=== PATIENT | female | born 1950 | race Caucasian/White ===

== ENCOUNTER → 2017-07-23 07:44 | Outpatient (CLI) | payer MEDICARE, SELFPAY ==
--- NOTE | 2017-07-23 07:46 | US_ITS ---
STUDY: ULTRASOUND OF THE FEMALE PELVIS - COMPLETE REASON FOR EXAM: Female, 67 years old. Follow-up of right ovarian cyst. LMP: The patient is postmenopausal. TECHNIQUE: Transvaginal TECHNICAL QUALITY: Adequate. COMPARISON: Comparison is made with prior examination dated June 03, 2017. FINDINGS: The uterus is anteverted and is in a midline position. The uterus measures 6.8 cm x 4.6 cm x 2.8 cm. Normal uterine cervix. The endometrium measures 4 mm in thickness, and is hyperechoic. There is no demonstrated endometrial mass. 2 small uterine fibroids are seen. The larger measures 1.5 cm x 1.2 size by 1.4 cm. I.U.D. - The patient does not have an I.U.D. The right ovary is visualized. The right ovary measures 6.3 cm x 4.1 cm x 5.0 cm. There is a 4.1 cm x 4 cm x 5.2 cm cyst in the right ovary. There is no visualized right adnexal mass or complex lesion. There is normal arterial and normal venous vascularity. The left ovary is visualized. The left ovary measures 2.0 cm x 1.5 cm x 1.0 cm. There is no left ovarian cyst or ovarian mass. There is no visualized left adnexal mass or complex lesion. There is normal arterial and normal venous vascularity. There is no fluid in the cul-de-sac. US/Transvaginal Non- IMPRESSION: Fibroid uterus. 4.1 cm x 4 cm x 5.2 cm cyst in the right ovary. This is essentially unchanged. Electronically Signed: Atul Ram MD at 13:38 EST Tel [phone], Service support ,
== END ==
PROVIDERS: Family Provider Family Medicine; PCP Family Medicine; Visit Provider Nurse Practitioner Women's Health
DX: N83.201 Unspecified ovarian cyst, right side (principal)
CPT/HCPCS: 76830

== ENCOUNTER → 2017-10-13 11:31 | Outpatient (CLI) | payer MEDICARE, SELFPAY ==
[2017-10-13 13:22] LABS: T4 Free Direct 1.19 ng/dL (0.76-1.46); Thyroid Stim Hormone (TSH) 1.17 uIU/mL (0.358-3.74)
== END ==
PROVIDERS: Family Provider Family Medicine; PCP Family Medicine; Visit Provider Nurse Practitioner Family
DX: I25.10 Atherosclerotic heart disease of native coronary artery without angina pectoris (principal); R53.83 Other fatigue; R63.1 Polydipsia; Z79.899 Other long term (current) drug therapy
CPT/HCPCS: 36415; 83036; 84439; 84443

== ENCOUNTER 2017-11-04 05:28 | Day surgery (SDC) | payer MEDICARE, SELFPAY ==
--- NOTE | 2017-10-28 12:51 | EKG12_ITS ---
Test Reason : Blood Pressure : / mmHG Vent. Rate : 068 BPM Atrial Rate : 068 BPM P-R Int : 164 ms QRS Dur : 148 ms QT Int : 470 ms P-R-T Axes : 045 046 061 degrees QTc Int : 499 ms Normal sinus rhythm Left bundle branch block Abnormal ECG Confirmed by AYDEE YA, ANGIE ([id number]), continuity editor DASHA REYES ([id number] on 10/29/2017 11:03:56 AM Referred By: Jaz Jameson Confirmed By:ANGIE BAJWA MD
[2017-10-28 13:22] VITALS: BP 130/67; PULSE 66; RESP 18; TEMP 36.8; O2SAT 94; BMI 41.3
[2017-10-28 14:51] LABS: Absolute Lymphocyte Count 2.12 X10^3/ul (0.83-4.51); Absolute Neutrophil Count 5.1 X10^3/uL (2.0-7.7); Basophil# 0.03 X10^3/uL; Basophil% 0.4 % (0-1); Eosinophils% 2.5 % (0-5); Hematocrit 40.3 % (37-47); Hemoglobin 13.3 g/dl (12.0-15.0); Lymphocyte # 2.12 X10^3/ul (4.0); Lymphocyte % 26.5 % (19-41); Mean Corpuscular Hgb 31.4 pg (27.0-32.0); Mean Corpuscular Volume 95.3 fL (81-99); Mean Platelet Vol. 10.5 fl (6.2-12.0); Monocyte# 0.56 X10^3/uL; Neutrophil # 5.06 X10^3/uL (2.7-7.7); Neutrophil % 63.3 % (47-70); Platelet Count 192 K/mm3 (150-450); RBC Distribution Width CV 12.9 % (11.6-14.6); RBC Distribution Width SD 43.3 fl (35.1-43.9); Red Blood Count 4.23 M/mm3 (4.2-5.4)
[2017-10-28 14:52] LABS: POSITIVE COUNT NO; POSITIVE DIFFERENTIAL NO; POSITIVE MORPHOLOGY NO
[2017-10-28 15:11] LABS: Anion Gap 6 (5-15); BUN 18 mg/dL (7-18); BUN/Creat Ratio 17.3 RATIO (10-20); Calcium,Total 8.6 mg/dL (8.5-10.1); Chloride 105 mmol/L (98-107); Creatinine, Serum 1.04 mg/dL (0.55-1.02); EST Glomerular Filtration Rate 56 mL/min (>60); Est Glom Filt Rate - Afr Amer 68 mL/min (>60); Estimated Creatinine Clearance 47.23 ml/min; Glucose 80 mg/dL (74-106); Sodium Level 142 mmol/L (136-145)
[2017-11-04] VITALS (13 sets, daily range): BP systolic 103–134; BP diastolic 52–78; PULSE 50–62; RESP 16–18; TEMP 36.6–37.4; O2SAT 64–99; BMI 41.3
--- NOTE | 2017-11-04 02:29 | PCM.HPOB.BLA ---
- Problem List (1) Cystocele with incomplete uterovaginal prolapse Status: Acute (2) CAD (coronary artery disease) Status: Acute (3) Right ovarian cyst Status: Acute Comment: nl ca125/cea, plan oophorectomy due to being symptomatic (4) Cardiomyopathy Status: Chronic Qualifiers: (5) Hypertension Status: Chronic Qualifiers: History and Physical Date of Admission: 11/04/17 Intake Vital Signs 08/03/17 Height 5 ft 5 in 08/03/17 Weight: 249 lb 08/03/17 Body Mass Index (BMI) 41.4 08/03/17 Blood Pressure 118/69 08/03/17 Pulse Rate 55 Intake Visit Reasons: ovarian cyst Accompanied by: Self Is patient in pain?: No (Patient states that it feels hot when she urinates. ) Allergies azithromycin [From Zithromax] Allergy (Verified 08/03/17 11:46) Other Medications Aspirin [Aspirin, Baby] 81 mg PO DAILY@0800 08/20/13 [History Confirmed 08/03/17] Carvedilol [Coreg (Beta Jenni)] 12.5 mg PO BID 08/20/13 [History Confirmed 08/03/17] Furosemide [Lasix] 40 mg PO DAILY 08/20/13 [History Confirmed 08/03/17] Lisinopril [Zestril] 20 mg PO BID 08/20/13 [History Confirmed 08/03/17] Potassium Chloride [K-Dur] 20 meq PO DAILY 08/20/13 [History Confirmed 08/03/17] Cholecalciferol (Vitamin D3) [Vitamin D3] 5,000 unit PO QODAY 01/05/17 [History Confirmed 08/03/17] Is last menstrual period known: No Post menopausal: Yes Patient : No : No PFSH Medical History Abnormal Pap smear of cervix (Acute) Surgical History H/O tubal ligation (Resolved) Hx of cholecystectomy (Resolved) cyst on throat (Resolved) Family History Father Diabetes Mother Arthritis Social History Smoking Status: Former smoker alcohol intake: never substance use type: does not use caffeine: Yes frequency: 1-2 times per week seatbelt use: always do you feel safe at home: Yes additional social history: and retired HPI ovarian cyst: Details: GRUPO DARDEN is a 67 year old who presents for follow up of her right ovarian cyst. she has persistent lower pelvic pain and vaginal pressure. she denies any urinary incontinence but feels bladder pressure which radiates into her lower right groin. this has been worsening over time and is signficiant enough she wants to seek therapy. Pregancy History 3 Elective abortions Hx Para 3 Spontaneous abortions Hx # Term Pregnancies Ectopic pregnancies Hx # Pregnancies Multiple births # of living children Past Pregnancies Del. Date Name GA/Weeks Outcome Route Bth Weight Infant Gen Labor Lgth Anesthesia Del Locatn Provider FOB Unknown 1969 Mindy Unknown 1972 Salome Unknown 1973 Shayy URIARTE Const Constitutional: Denies poor appetite, headache(s), fever(s), increased appetite, weight gain, weight loss or fatigue Cardio Card: Denies chest pain Resp Resp: Denies dyspnea or cough GI GI: Reports as per HPI; denies vomiting, nausea or constipation : Reports as per HPI; denies urinary urgency, vaginal discharge, urinary frequency, vaginal itching, vaginal odor, vaginal dryness, urinary incontinence, urinary hesitancy, difficulty urinating, painful urination or nipple discharge Skin Skin/Breast: Denies breast lump, breast pain, breast skin changes, nipple discharge or change in hair Exam Const General: cooperative, healthy appearing, comfortable, no acute distress, well developed Nutritional Appearance: obese Orientation: alert [facility] [place] Head: normal to inspection, normocephalic Neck Neck: normal visual inspection, trachea midline Thyroid: thyroid normal Resp Effort & Inspection: normal respiratory effort GI Inspection: normal to inspection, non-distended Palpation: soft, no hepatosplenomegaly General: bladder normal to palpation External Female Exam: normal external appearance, normal appearance of the urethra Urethra: normal appearance of the urethra, normal palpation, no discharge Speculum Exam - Vagina: normal appearance of the vagina, normal vaginal discharge Speculum Exam - Cervix: normal appearance of the cervix, nontender Bimanual Exam- Vagina & Uterus: bladder normal to palpation, No cervical tenderness, normal bimanual exam, uterine size normal, uterine shape normal, uterine mobility normal, uterine consistency normal, normal cervical palpation, uterus non-tender Bimanual Exam- Adnexa, other: normal adnexae, adnexae mobile, no adnexal masses, cystocele, vaginal apex descent Pelvic Support: cystocele severe, vaginal apex descent mild Skin General: no rashes or lesions noted Assessment & Plan Problems 1. Right ovarian cyst N83.201 nl ca125/cea, plan oophorectomy due to being symptomatic 2. Cystocele with incomplete uterovaginal prolapse N81.2 Plan discussed options including expectant management versus surgical- patient wants to proceed with surgery. recommend LAVH BSO anterior repair nidhi culdoplasty cystoscopy. Discussed with the patient risks of surgery including risks of anesthesia, bleeding, infection, damage to surrounding structures such as bowel, bladder, or vasculature that could lead to additional surgery to repair. I discussed the risk of needing to convert to open abdominal procedure if unable to perform the procedure laparoscopically. medical and cardiac clearance done Coding Level of Care Code Off vis,est,level 5 Diagnoses Right ovarian cyst N83.201 Cystocele with incomplete uterovaginal prolapse N81.2 i have seen the patient and made any clinically relevant updates to the h and p.
[2017-11-04] MEDS: Phenazopyridine 95 MG Tablet PO (06:22)
--- NOTE | 2017-11-04 07:30 | HYST_PTH ---
PATIENT: GRUPO DARDEN LOC: [facility] – [place] U#:[id number] AGE/SX: 67/F ROOM: RE11/04/[address]: Dr. Jaz Jameson MD : 1950 BED: DIS: 11/05/2017 SPEC #: [id number] RECD: 11/04/17 13:43 STATUS: MAYTE LUCIO #: [id number] MARINA: 11/04/17 07:[address]: Jaz Jameson DEPT: SURGICAL PATHOLOGY RECD BY: Parveen Stone ENTERED: 11/04/17 14:12 SP TYPE: HYSTERECT OTHR DR: Dr. Kenneth Hernandez MD Tissues: Uterus, NOS Procedures: PAS with Diastase (control) Special Stain Group II PAS Stain (control) Surgery Specimen Level V HEADER OPERATION: Hysterectomy, lap assisted vaginal, BSO, anterior repair, cysto PRE-OP DIAGNOSIS: Right ovarian cyst, cystocele with incomplete uterovaginal prolapse TISSUE SUBMITTED: Uterus, bilateral tubes and ovaries MICROSCOPIC DIAGNOSIS Uterus, hysterectomy: Cervix ? nabothian cysts, squamous metaplasia and mild chronic inflammation. Endometrial polyp ? benign polyp with cystic change. Endometrium ? weakly proliferative to inactive endometrium with cystic change. Myometrium ? superficial adenomyosis. Right fallopian tube ? tubo-ovarian adhesion. 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 Corpora albicantia. Left fallopian tube ? no pathologic change. Left ovary ? corpora albicantia. AM:kb 11/05/17 COMMENT PAS and PASD stains with matched controls support the above diagnosis. MICROSCOPIC DESCRIPTION Slides are reviewed. GROSS DESCRIPTION Received in fixative is one container labeled with the patient's name and designated uterus, bilateral tubes and ovaries. The specimen consists of a hysterectomy specimen consisting of uterus with cervix, attached left fallopian tube and ovary and detached right fallopian tube and ovary. The uterus with cervix weighs 49 gm and measures 8 x 5 x 3 cm. The serosal surface is byrnes, glistening. The ectocervical mucosa is focally congested. The external os is circular in contour. The endocervical canal measures 2.5 cm in length and the endocervical mucosa is unremarkable. The triangular endometrial cavity measures 3.5 cm in length and 1.5 cm in width. The endometrial cavity shows a byrnes-pink polyp measuring 1.5 x 0.5 x 0.2 cm and the anterior uterine wall close to internal os. The myometrial wall underneath the polyp is not indurated. The rest of the endometrium measures 0.1 cm in thickness. Sections of the uterine wall do not reveal any mass lesion and it measures up to 1.5 cm in thickness. The left fallopian tube measures 5 cm in length and 0.5 cm in diameter. The fimbrial end is identified. No tubo-ovarian adhesions are noted. Sections of fallopian tube reveal unremarkable cut surfaces. The left ovary measures 2 x 1.5 x 1.2 cm. Sections reveal unremarkable cut surfaces. The detached right ovary measures 6 x 5 x 5 cm and weighs 55 gm. The right fallopian tube is present, only a small portion and measures 1 cm in length and 0.5 cm in diameter. The fallopian tube is adherent focally to the cystic ovary. The fimbrial end is identified. The outer surface of the ovary is smooth without any papillation and inked black. The cyst wall is smooth without any papillation. The cystic ovary contains cloudy to slightly mucoidy fluid. The cyst wall measures 0.1 cm in thickness. Front Desk Attendant sections are submitted in ten cassettes as follows: 1 - anterior cervix, 2 - posterior cervix, 3 & 4 - anterior uterine wall (cassette 3 also contains the polyp with underlying uterine wall), 5 & 6 - posterior uterine wall, 7 ? left fallopian tube and ovary, 8 ? right fallopian tube, entirely submitted, 9 & 10 ? right ovary. / AAMIR:kb 11/04/17 TC:1 CPT: 84430, 26580 x2
[2017-11-04] MEDS: Lubricating Jelly 60 GM Tube 30 GM TOPICAL (07:33)
[2017-11-04] MEDS: Bupivacaine 0.25% 30 ML Vial (08:03)
[2017-11-04] MEDS: Vasopressin 20 UNITS/ML Vial (08:40)
[2017-11-04] MEDS: Estrogens,Conj. 1 Tube 1 DOSE (09:05)
--- NOTE | 2017-11-04 10:16 | PCM.OPRPT ---
Problem List (1) Cystocele with incomplete uterovaginal prolapse Status: Acute (2) CAD (coronary artery disease) Status: Acute (3) Right ovarian cyst Status: Acute Comment: nl ca125/cea, plan oophorectomy due to being symptomatic (4) Cardiomyopathy Status: Chronic Qualifiers: (5) Hypertension Status: Chronic Qualifiers: Report of Operation Date of Procedure: 11/04/17 Pre-Operative Diagnosis: Pelvic pain ovarian cyst cystocele with incomplete uterovaginal prolapse Post-Operative Diagnosis: same Surgery/Procedure Performed:: LAVH BSO anterior repair cystoscopy modified Herring's culdoplasty Description of Surgical Findings:: Enlarged right simple ovarian cyst anterior cystocele cigarette catcher: Aleah Borges Type of Anesthesia:: General Special Medications: Osmany Specimen's removed: Uterus tubes ovaries Drains: leavitt Estimated Blood Loss (mL): 150 cc Fluids Replaced: cryStyloid Description of Procedure: Patient received preoperative antibiotics and SCDs were on preoperatively. Patient was taken back to the operating room and placed in the dorsal lithotomy position. General anesthesia was induced and patient was prepped and draped in normal sterile fashion. Uterine manipulator was placed inside the uterus and Leavitt catheter placed in the bladder. The umbilicus was grasped with towel clamps and an intraumbilical incision was made after injecting with quarter percent Marcaine and a Veress needle entered into the abdomen confirmed to be intra-abdominal with a low opening pressure. Abdomen was insufflated with CO2 gas and the Veress needle removed and the 5 mm trocar was placed under direct visualization without complication. Right and left lower quadrants were transilluminated and injected with quarter percent Marcaine and 5 mm ports placed under direct visualization. Pelvis was well visualized see operative findings for additional information. left sigmoid to pelvic side wall adhesions were taken down with the ligasure, and right ovarian adhesions were also taken down. Bilateral fallopian tubes were identified and transected with the LigaSure device across the mesosalpinx to the level of the utero-ovarian ligament which was also transected with the LigaSure device. The broad ligament was opened up by transecting the round ligament bilaterally and skeletonizing the uterine vessels bilaterally and creating a bladder flap using the LigaSure device. The uterine arteries were transected bilaterally with good visualization of the bladder and the ureters were seen to be inferior lateral to the operative area. Attention was then paid to the vaginal portion of the procedure and the cervix was grasped with Manoj clamps and circumferentially injected with dilute vasopressin. A circumferential incision was made and the vaginal mucosa was mobilized off posteriorly and the cul-de-sac entered into sharply and a longneck speculum placed. The anterior cul-de-sac was then identified and entered into sharply. The uterosacral ligaments were clamped cut and suture ligated with 0 Monocryl bilaterally followed by the cardinal ligaments which were clamped cut and suture ligated bilaterally with 0 Monocryl. The uterus serially descended and was removed without difficulty with no morcellation. Pelvic sidewall pedicles were checked and noted to have excellent hemostasis. An internal Herring stitch was placed with 2-0 Prolene and then to 2-0 PDS Herring stitches were placed and then attention was applied to the stitches and cystoscopy was performed. Left ureteral spray was seen but right ureteral spray was compromised and therefore the internal suture was removed of the Prolene. The spray was then seen. Angle sutures to the vaginal cuff were placed with 0 Vicryl and then the Herring's stitches were tied down and repeat cystoscopy was performed confirming strong bilateral ureteral spray. Anterior repair was then started by injecting into the vaginal mucosa dilute vasopressin and then incising the midline and dissecting off the underlying pubocervical fascia off of the vaginal mucosa. Once dissection was complete across the entire anterior defect interrupted sutures of 2-0 PDS were made in 2 layers to correct the defect and provide support. Cystoscopy was then performed and bilateral ureteral strong spray was noted and the bladder was noted to have no abnormality or lesions seen. Leavitt catheter was replaced and The vaginal mucosa was reapproximated incorporating the posterior peritoneum. This was reapproximated using 0 Vicryl [id number] sutures. Excellent hemostasis was noted. then attention paid to the abdominal portion of the procedure again. The pelvis and cul-de-sac was well visualized and no significant active bleeding noted but some raw areas were seen on the peritoneum and therefore Osmany was applied. Pressure was taken down and the areas visualized and noted of excellent hemostasis. All ports were removed under direct visualization without complication and the abdomen was desufflated of air. The instruments removed from the abdomen and the vagina vaginal sweep was negative. Port sites on the abdomen were closed with 4-0 Monocryl interrupted sutures and Steri's and windows were applied. She was awoken and taken recovery in stable condition. Grafts/Implants Used: none - Complications none - Admit VTE Documentation VTE Present on Admission: No VTE Mechan Device Prophylaxis: SCD's
--- NOTE | 2017-11-04 10:23 | OP.PCM_ITS ---
Problem List (1) Cystocele with incomplete uterovaginal prolapse Status: Acute (2) CAD (coronary artery disease) Status: Acute (3) Right ovarian cyst Status: Acute Comment: nl ca125/cea, plan oophorectomy due to being symptomatic (4) Cardiomyopathy Status: Chronic Qualifiers: (5) Hypertension Status: Chronic Qualifiers: Report of Operation Date of Procedure: 11/04/17 Pre-Operative Diagnosis: Pelvic pain ovarian cyst cystocele with incomplete uterovaginal prolapse Post-Operative Diagnosis: same Surgery/Procedure Performed:: LAVH BSO anterior repair cystoscopy modified Herring's culdoplasty Description of Surgical Findings:: Enlarged right simple ovarian cyst anterior cystocele search engineer: Aleah Borges Type of Anesthesia:: General Special Medications: Osmany Specimen's removed: Uterus tubes ovaries Drains: leavitt Estimated Blood Loss (mL): 150 cc Fluids Replaced: cryStyloid Description of Procedure: Patient received preoperative antibiotics and SCDs were on preoperatively. Patient was taken back to the operating room and placed in the dorsal lithotomy position. General anesthesia was induced and patient was prepped and draped in normal sterile fashion. Uterine manipulator was placed inside the uterus and Leavitt catheter placed in the bladder. The umbilicus was grasped with towel clamps and an intraumbilical incision was made after injecting with quarter percent Marcaine and a Veress needle entered into the abdomen confirmed to be intra-abdominal with a low opening pressure. Abdomen was insufflated with CO2 gas and the Veress needle removed and the 5 mm trocar was placed under direct visualization without complication. Right and left lower quadrants were transilluminated and injected with quarter percent Marcaine and 5 mm ports placed under direct visualization. Pelvis was well visualized see operative findings for additional information. left sigmoid to pelvic side wall adhesions were taken down with the ligasure, and right ovarian adhesions were also taken down. Bilateral fallopian tubes were identified and transected with the LigaSure device across the mesosalpinx to the level of the utero-ovarian ligament which was also transected with the LigaSure device. The broad ligament was opened up by transecting the round ligament bilaterally and skeletonizing the uterine vessels bilaterally and creating a bladder flap using the LigaSure device. The uterine arteries were transected bilaterally with good visualization of the bladder and the ureters were seen to be inferior lateral to the operative area. Attention was then paid to the vaginal portion of the procedure and the cervix was grasped with Manoj clamps and circumferentially injected with dilute vasopressin. A circumferential incision was made and the vaginal mucosa was mobilized off posteriorly and the cul-de- sac entered into sharply and a longneck speculum placed. The anterior cul-de- sac was then identified and entered into sharply. The uterosacral ligaments were clamped cut and suture ligated with 0 Monocryl bilaterally followed by the cardinal ligaments which were clamped cut and suture ligated bilaterally with 0 Monocryl. The uterus serially descended and was removed without difficulty with no morcellation. Pelvic sidewall pedicles were checked and noted to have excellent hemostasis. An internal Herring stitch was placed with 2-0 Prolene and then to 2-0 PDS Herring stitches were placed and then attention was applied to the stitches and cystoscopy was performed. Left ureteral spray was seen but right ureteral spray was compromised and therefore the internal suture was removed of the Prolene. The spray was then seen. Angle sutures to the vaginal cuff were placed with 0 Vicryl and then the Herring's stitches were tied down and repeat cystoscopy was performed confirming strong bilateral ureteral spray. Anterior repair was then started by injecting into the vaginal mucosa dilute vasopressin and then incising the midline and dissecting off the underlying pubocervical fascia off of the vaginal mucosa. Once dissection was complete across the entire anterior defect interrupted sutures of 2-0 PDS were made in 2 layers to correct the defect and provide support. Cystoscopy was then performed and bilateral ureteral strong spray was noted and the bladder was noted to have no abnormality or lesions seen. Leavitt catheter was replaced and The vaginal mucosa was reapproximated incorporating the posterior peritoneum. This was reapproximated using 0 Vicryl [id number] sutures. Excellent hemostasis was noted. then attention paid to the abdominal portion of the procedure again. The pelvis and cul-de-sac was well visualized and no significant active bleeding noted but some raw areas were seen on the peritoneum and therefore Osmany was applied. Pressure was taken down and the areas visualized and noted of excellent hemostasis. All ports were removed under direct visualization without complication and the abdomen was desufflated of air. The instruments removed from the abdomen and the vagina vaginal sweep was negative. Port sites on the abdomen were closed with 4-0 Monocryl interrupted sutures and Steri's and windows were applied. She was awoken and taken recovery in stable condition. Grafts/Implants Used: none - Complications none - Admit VTE Documentation VTE Present on Admission: No VTE Mechan Device Prophylaxis: SCD's
[2017-11-04] MEDS: Lactated Ringers 1,000 ML 125 ML IV ×2 (12:00→20:19)
[2017-11-04] MEDS: Acetaminophen 500 MG Tablet 1000 MG PO ×2 (14:07→21:24)
[2017-11-04] MEDS: oxyCODONE 5 MG Tablet PO ×2 (14:08→20:19)
[2017-11-04] MEDS: Furosemide 40 MG Tablet PO (20:25)
[2017-11-04] MEDS: Carvedilol 12.5 MG Tablet PO (21:24)
[2017-11-04] MEDS: Enoxaparin 40 MG/0.4 ML Syringe SC (21:25)
[2017-11-05] VITALS (7 sets, daily range): BP systolic 104–120; BP diastolic 49–60; PULSE 52–64; RESP 18; TEMP 36.7–36.9; O2SAT 96–97
[2017-11-05] MEDS: Acetaminophen 500 MG Tablet 1000 MG PO (05:00)
--- NOTE | 2017-11-05 07:11 | PCM.DC.VHY ---
Discharge Diet: No Restrictions Discharge Activity: Return to Normal Activity, May Not Drive, May Shower May resume sexual activity in: 6-8 weeks Call your doctor if your incision/area has: Continuous Slow Oozing, Sudden Increased Bleeding, Increased Pain/ Swelling, Increased Redness, Foul Smelling Discharge Call your doctor if you observe: Fever of 101 or Higher, Inability to urinate, Inability to have a bowel movement, Using more than one pad per hour Allergies/Adverse Reactions: Allergies azithromycin [From Zithromax] Allergy (Verified 10/28/17 12:57) Other colesevelam [From WelChol] Adverse Reaction (Severe, Verified 10/28/17 12:57) Constipation colestipol [From Colestid] Adverse Reaction (Severe, Verified 10/28/17 12:57) Abdominal bloating,constipation Dlnmwbd-Rcu-Znb Reductase Inhibitor Adverse Reaction (Severe, Verified 10/28/17 12:57) Myalgias telithromycin [From Ketek] Adverse Reaction (Severe, Verified 10/28/17 12:57) Unknown Medications to take at Discharge Aspirin [Aspirin, Baby] 81 mg PO DAILY@0800 08/20/13 Potassium Chloride [K-Dur] 20 meq PO DAILY 08/20/13 Cholecalciferol (Vitamin D3) [Vitamin D3] 5,000 unit PO QODAY 01/05/17 carvedilol 12.5 mg tablet 12.5 mg PO BID #180 tab 08/16/17 furosemide 40 mg tablet 40 mg PO DAILY #90 tab 10/13/17 lisinopril 20 mg tablet 20 mg PO QDAY tab 10/13/17 Naproxen [Naprosyn] 250 - 500 mg PO Q8H PRN PRN #30 tab 11/05/17 Oxycodone HCl/Acetaminophen [Percocet 5-325] 2 tablet PO Q4H PRN PRN 7 Days #28 tablet 11/05/17 The following prescriptions were given: Oxycodone HCl/Acetaminophen [Percocet 5-325] 2 tablet PO Q4H PRN PRN 7 Days #28 tablet PRN Reason: Moderate-Severe pain Naproxen [Naprosyn] 250 - 500 mg PO Q8H PRN PRN #30 tab PRN Reason: MILD PAIN Primary Care Physician: Kenneth Hernandez MD [Primary Care Provider] - Please Follow Up With: Jaz Jameson MD - [phone] When: fu 2 and 6 weeks
[2017-11-05 07:40] LABS: Hematocrit 34.5 % (37-47); Hemoglobin 11.4 g/dl (12.0-15.0); Mean Corpuscular Hgb 31.1 pg (27.0-32.0); Mean Corpuscular Volume 94.3 fL (81-99); Platelet Count 164 K/mm3 (150-450); RBC Distribution Width CV 13.1 % (11.6-14.6); Red Blood Count 3.66 M/mm3 (4.2-5.4); White Blood Count 13.1 K/mm3 (4.4-11.0)
[2017-11-05 07:45] LABS: Scan Indicated on CBC? Y/N NO
[2017-11-05] MEDS: Aspirin 81 MG TAB.CHEW PO (07:46)
[2017-11-05] MEDS: oxyCODONE 5 MG Tablet PO ×2 (07:49→13:56)
== END 2017-11-05 14:19 | disposition home or self-care (01) ==
LOC: SDC 05:28 → AC 05:29 → MS3 08:30
PROVIDERS: Family Provider Family Medicine; PCP Family Medicine; Visit Provider Obstetrics & Gynecology
PROC: 0UT9FZZ Resection of Uterus, Via Natural or Artificial Opening With Percutaneous Endoscopic Assistance (ICD-10-PCS; CPT 57268; principal; 2017-11-04 07:05)
DX: N81.2 Incomplete uterovaginal prolapse (principal); I25.10 Atherosclerotic heart disease of native coronary artery without angina pectoris; Z87.891 Personal history of nicotine dependence; I42.9 Cardiomyopathy, unspecified; I10 Essential (primary) hypertension; I44.7 Left bundle-branch block, unspecified; E66.9 Obesity, unspecified; Z68.41 Body mass index [BMI] 40.0-44.9, adult; Z71.3 Dietary counseling and surveillance; N83.291 Other ovarian cyst, right side; K21.9 Gastro-esophageal reflux disease without esophagitis; E78.00 Pure hypercholesterolemia, unspecified; Z79.899 Other long term (current) drug therapy; Z79.82 Long term (current) use of aspirin; N88.8 Other specified noninflammatory disorders of cervix uteri; N80.0 Endometriosis of uterus; N83.292 Other ovarian cyst, left side
CPT/HCPCS: 57268; 58552; 36415; 80048; 85025; 85027; 86850; 86900; 88307; 88313; 93005; J7120; J2405

== ENCOUNTER → 2018-02-09 07:18 | Outpatient (CLI) | payer MEDICARE, SELFPAY ==
[2018-02-09 09:10] LABS: AST(SGOT) 22 U/L (15-37); Alanine Aminotransfer ALT/SGPT 39 U/L (13-56); Albumin, Serum 3.5 g/dL (3.2-5.0); Alkaline Phosphatase 117 U/L (45-117); Bilirubin, Direct 0.07 mg/dL (0.00-0.30); Cholesterol 231 mg/dL (200); Globulin 3.8 g/dL (2.2-4.2); High Density Lipoprotein 56 mg/dL; Protein, Total 7.3 g/dL (6.4-8.2); Triglycerides 130 mg/dL; Very Low Density Lipoprotein 26 mg/dL (5-40)
== END ==
PROVIDERS: Family Provider Family Medicine; PCP Family Medicine; Visit Provider Internal Medicine Cardiovascular Disease
DX: I25.10 Atherosclerotic heart disease of native coronary artery without angina pectoris (principal); E78.00 Pure hypercholesterolemia, unspecified
CPT/HCPCS: 36415; 80061; 80076

== ENCOUNTER → 2018-09-02 13:43 | Outpatient (CLI) | payer MEDICARE, SELFPAY ==
[2018-08-12 10:05] VITALS: BMI 40.9
--- NOTE | 2018-09-02 13:46 | ECHOCS_ITS ---
Reason For Study: CAD Procedure This was a 2D Doppler, Color Flow transthoracic echocardiogram. Technically difficult due to patient body habitus. Contrast injection performed. The study was technically difficult. Contrast injection was performed. Exam performed in department. Left Ventricle Normal LV size. Mild global left ventricular systolic dysfunction. The estimated ejection fraction is 45 %. Septal motion consistent with IVCD. Diastolic function is indeterminate. Right Ventricle Normal RV size. Normal systolic function. Atria The left atrium is mildly enlarged. Normal right atrium. No doppler evidence for ASD. Mitral Valve There is no mitral annular calcification. Normal mitral valve. Trivial mitral valve insufficiency. Tricuspid Valve Normal tricuspid valve. Trivial tricuspid valve insufficiency. Unable to estimate RV systolic pressure/pulmonary artery pressure due to technically difficult study. Aortic Valve The aortic valve is not well visualized. Pulmonic Valve The pulmonic valve is not well visualized. Great Vessels Normal sized aortic root. Pericardium/Pleural No pericardial effusion. Medication 22 gauge I.V. with prn adaptor inserted into right arm. Diluted definity 4ml given slow IV push to enhance endocardial definition. MMode/2D Measurements & Calculations LVIDd: 4.5 cm IVSd: 1.5 cm Ao root diam: 3.4 cm LVIDs: 3.9 cm LVPWd: 1.3 cm LA dimension: 4.2 cm FS: 13.0 % LAV(MOD-sp4): 88.8 ml LVAd ap4: 32.6 cm2 SV(MOD-sp4): 49.2 ml EDV(MOD-sp4): 119.1 ml EDV(sp4-el): 126.0 ml LVAs ap4: 23.9 cm2 ESV(MOD-sp4): 69.9 ml ESV(sp4-el): 75.2 ml EF(MOD-sp4): 41.3 % EF(sp4-el): 40.3 % SV(sp4-el): 50.8 ml LA A4 area: 25.0 cm2 Time Measurements MV dec time: 0.30 sec Doppler Measurements & Calculations MV E max alexi: 76.0 cm/sec Lat Peak E' Alexi: 2.8 cm/sec Med Peak E' Alexi: 8.7 cm/sec MV A max alexi: 96.1 cm/sec E/E' lat: 26.8 E/E' med: 8.7 MV E/A: 0.79 MV V2 max: 116.5 cm/sec MV P1/2t max alexi: 81.9 cm/sec Ao V2 max: 159.9 cm/sec MV max P.4 mmHg MV P1/2t: 128.1 msec Ao max P.2 mmHg MV V2 mean: 60.0 cm/sec Ao V2 mean: 93.5 cm/sec MV mean P.7 mmHg MV dec slope: 187.2 cm/sec2 Ao mean P.2 mmHg MV V2 VTI: 34.4 cm MVA(P1/2t): 1.7 cm2 Ao V2 VTI: 29.5 cm LV V1 max: 89.6 cm/sec PA V2 max: 105.0 cm/sec LV V1 max P.2 mmHg LV V1 mean P.3 mmHg LV V1 mean: 52.3 cm/sec LV V1 VTI: 17.6 cm Interpretation Summary The study was technically difficult. Contrast injection was performed. Mild global left ventricular systolic dysfunction. The estimated ejection fraction is 45 %. Septal motion consistent with IVCD. The left atrium is mildly enlarged. Trivial mitral valve insufficiency. Trivial tricuspid valve insufficiency. Unable to estimate RV systolic pressure/pulmonary artery pressure due to technically difficult study. Diastolic function is indeterminate. Ordering Physician: Vivek Lemus Referring Physician: Vivek Lemus Performed By: Nixon Oneal RCS
== END ==
PROVIDERS: Family Provider Family Medicine; PCP Family Medicine; Referring Provider Internal Medicine Cardiovascular Disease; Visit Provider Internal Medicine Cardiovascular Disease
DX: I25.10 Atherosclerotic heart disease of native coronary artery without angina pectoris (principal); I42.8 Other cardiomyopathies
CPT/HCPCS: 93306; Q9957; A4216; C8929

== ENCOUNTER → 2020-10-11 13:47 | Outpatient (CLI) | payer MEDICARE, SELFPAY ==
[2020-10-11 13:03] VITALS: BMI 43.6
--- NOTE | 2020-10-11 13:55 | RAD_ITS ---
STUDY: X-RAY CHEST REASON FOR EXAM: Female, 70 years old. Shortness of breath. TECHNIQUE: PA and lateral views of the chest. COMPARISON: 03/25/2011. FINDINGS: The lungs are clear and expanded. There is no demonstrated pleural abnormality. The heart is borderline enlarged. Normal mediastinum and en. Normal visualized pulmonary arteries. There is mild atherosclerotic calcification of the aortic arch with tortuosity. Normal visualized thoracic spine. Normal visualized ribs, clavicles, and shoulders. There is no demonstrated abnormality of the visualized soft tissue structures of the upper abdomen. RAD/Chest PA and Lateral IMPRESSION: Borderline cardiomegaly without acute pulmonary disease or interval change. Electronically Signed: Indio Salguero DO at 18:18 EDT Tel [phone], Service support ,
== END ==
PROVIDERS: PCP Family Medicine; Referring Provider Internal Medicine Cardiovascular Disease; Visit Provider Internal Medicine Cardiovascular Disease
DX: R06.02 Shortness of breath (principal); R05 Cough
CPT/HCPCS: 71046; 87635; C9803; U0002

== ENCOUNTER → 2020-10-25 12:46 | Outpatient (CLI) | payer MEDICARE, SELFPAY ==
[2020-10-11 13:03] VITALS: BMI 43.6
--- NOTE | 2020-10-25 12:48 | ECHOCS_ITS ---
Reason For Study: CMP Procedure This was a 2D Doppler, Color Flow transthoracic echocardiogram. Technically difficult study due to patients body habitus. Contrast injection was performed to help enhance image quality. The study was technically difficult. Contrast injection was performed. Exam performed in department. Left Ventricle Normal LV size. Mild global left ventricular systolic dysfunction. The estimated ejection fraction is 50 %. Septal motion consistent with IVCD. Diastolic function is indeterminate. Right Ventricle Normal RV size. Normal systolic function. Atria The left atrium is mildly enlarged. Normal right atrium. No doppler evidence for ASD. Mitral Valve There is no mitral annular calcification. Normal mitral valve. Mild (1+) mitral valve insufficiency. Tricuspid Valve Normal tricuspid valve. Trivial tricuspid valve insufficiency. Unable to estimate RV systolic pressure/pulmonary artery pressure due to technically difficult study. Aortic Valve The aortic valve is not well visualized. Pulmonic Valve The pulmonic valve is not well visualized. Great Vessels Normal sized aortic root. Pericardium/Pleural No pericardial effusion. Medication 22 gauge I.V. with prn adaptor inserted into right arm. Diluted definity 6ml given slow IV push to enhance endocardial definition. MMode/2D Measurements & Calculations Ao root diam: 3.6 cm LAV(MOD-bp): 66.8 ml LA dimension: 4.3 cm LA A4 area: 21.1 cm2 LAV(MOD-bp) Indexed: 30.8 ml/m2 LAV(MOD-sp2): 66.6 ml LAV(MOD-sp4): 64.7 ml Time Measurements MV dec time: 0.33 sec Doppler Measurements & Calculations MV E max alexi: 68.5 cm/sec Lat Peak E' Alexi: 3.9 cm/sec Med Peak E' Aelxi: 8.8 cm/sec MV A max alexi: 88.6 cm/sec E/E' lat: 17.4 E/E' med: 7.8 MV E/A: 0.77 MV V2 max: 122.3 cm/sec MV P1/2t max alexi: 89.6 cm/sec Ao V2 max: 184.0 cm/sec MV max P.0 mmHg MV P1/2t: 107.2 msec Ao max P.5 mmHg MV V2 mean: 62.0 cm/sec MV dec slope: 244.7 cm/sec2 MV mean P.8 mmHg MV V2 VTI: 33.6 cm MVA(P1/2t): 2.1 cm2 LV V1 max: 132.6 cm/sec PA V2 max: 114.6 cm/sec LV V1 max P.0 mmHg ECHO/Echo Complete W/ Contrast Interpretation Summary The study was technically difficult. Contrast injection was performed. Mild global left ventricular systolic dysfunction. The estimated ejection fraction is 50 %. Septal motion consistent with IVCD. The left atrium is mildly enlarged. Mild (1+) mitral valve insufficiency. Trivial tricuspid valve insufficiency. Unable to estimate RV systolic pressure/pulmonary artery pressure due to techni fouzia difficult study. Diastolic function is indeterminate. Ordering Physician: Vivek Lemus Referring Physician: Vadim Weller Performed By: Nixon Oneal RCS
== END ==
PROVIDERS: PCP Family Medicine; Referring Provider Internal Medicine Cardiovascular Disease; Visit Provider Internal Medicine Cardiovascular Disease
DX: I25.10 Atherosclerotic heart disease of native coronary artery without angina pectoris (principal); R06.02 Shortness of breath; R05 Cough; I42.9 Cardiomyopathy, unspecified
CPT/HCPCS: 93306; Q9957; A4216; C8929

== ENCOUNTER → 2020-11-01 12:48 | Outpatient (CLI) | payer MEDICARE, SELFPAY ==
[2020-10-11 13:03] VITALS: BMI 43.6
== END ==
PROVIDERS: PCP Family Medicine; Referring Provider Internal Medicine Cardiovascular Disease; Visit Provider Internal Medicine Cardiovascular Disease
DX: R00.2 Palpitations (principal); I47.1 Supraventricular tachycardia; I44.7 Left bundle-branch block, unspecified
CPT/HCPCS: 93225; 93226

== ENCOUNTER 2021-03-03 13:07 | Outpatient (CLI) | payer MEDICARE, SELFPAY ==
[2021-03-03 13:28] VITALS: BP 111/60; PULSE 60; RESP 18; TEMP 37.1; O2SAT 94; BMI 42.9
[2021-03-03] MEDS: 0.9% Saline Lock 10 ML Syringe IV (13:32)
[2021-03-03 14:07] VITALS: BP 113/58; PULSE 57; RESP 16; TEMP 36.9; O2SAT 97
[2021-03-03 15:10] VITALS: BP 112/58; PULSE 58; RESP 16; TEMP 36.7; O2SAT 94
== END 2021-03-03 15:10 | disposition home or self-care (01) ==
LOC: ICUOUT 13:08 → MS3 13:09
PROVIDERS: PCP Family Medicine; Referring Provider Nurse Practitioner Adult Health; Visit Provider Nurse Practitioner Adult Health
DX: Z23 Encounter for immunization (principal); U07.1 COVID-19
CPT/HCPCS: J7050; M0243; A4216; Q0244

== ENCOUNTER 2021-09-16 12:39 | Outpatient (CLI) | payer MEDICARE, SELFPAY ==
--- NOTE | 2021-09-16 12:47 | CDU_ITS ---
Reason For Study: retinal hemorrhage Rt. Velocities/BP Lt. Velocities/BP Prox CCA 94.3/21.3 cm/sec. Prox CCA 96.9/35.6 cm/sec. Mid CCA 77.3/25.2 cm/sec. Mid CCA 78.6/26.5 cm/sec. Dist CCA 78.6/17.3 cm/sec. Dist CCA 79.9/25.2 cm/sec. Prox ICA 46.0/12.1 cm/sec. Prox ICA 90.0/22.5 cm/sec. Mid ICA 76.0/22.6 cm/sec. Mid ICA 102.3/24.9 cm/sec. Dist ICA 76.0/30.4 cm/sec. Dist ICA 110.1/24.3 cm/sec. Rt. ICA/CCA = 1.0. Lt. ICA/CCA = 1.4. Prox ECA 85.1/9.5 cm/sec. Prox ECA 167.5/29.2 cm/sec. Rt. Vert. 49.9/17.3 cm/sec. Lt. Vert. 48.7/13.5 cm/sec. Right Extracranial There is homogeneous, smooth atherosclerotic plaque noted in the right common carotid artery. There is heterogeneous, irregular atherosclerotic plaque noted in the right internal carotid artery. There is homogeneous, smooth atherosclerotic plaque noted in the right external carotid artery. Antegrade flow is noted in the right vertebral artery. Left Extracranial There is homogeneous, smooth atherosclerotic plaque noted in the left common carotid artery. There is intimal thickening but no significant atherosclerotic plaque noted in the left internal carotid artery. There is homogeneous, smooth atherosclerotic plaque noted in the left external carotid artery. Antegrade flow is noted in the left vertebral artery. Procedure Carotid Duplex 90093. This is a Carotid Duplex examination using B-mode, color flow and specral Doppler. The exam was diagnostic. Difficult study. Arteries moving with respiration. Exam performed in department. VL/Carotid Duplex Ultrasound Interpretation Summary Mild (<50%) stenosis right extracranial internal carotid. No significant athero sclerotic plaque or stenosis noted in the left internal carotid artery. Flow within the vertebral a rteries is antegrade bilaterally. Ordering Physician: Glenn Carmona Performed By: Harrison Chou RVT
== END 2021-09-16 23:59 | disposition home or self-care (01) ==
PROVIDERS: PCP Family Medicine; Referring Provider Ophthalmology; Visit Provider Ophthalmology
DX: H35.61 Retinal hemorrhage, right eye (principal); G45.3 Amaurosis fugax
CPT/HCPCS: 93880

== ENCOUNTER → 2021-12-03 | Outpatient (CLI) | payer MEDICARE, SELFPAY ==
--- NOTE | 2021-12-03 12:59 | STRESSREP ---
Stress Test Report Date: 12-03-2021 Procedure: Pharmacologic stress nuclear imaging study Indications: Shortness of breath/dyspnea on exertion; CAD; cardiomyopathy; cardiac dysrhythmia; left bundle branch block Consent: Per the patient Procedure: The patient underwent pharmacologic (Regadenoson 0.4mg ) evaluation with a peak heart rate of 96 beats per minute (64%predicted maximal heart rate) and a peak blood pressure of 132/80 mmHg. The baseline ECG demonstrated sinus bradycardia; left bundle branch block pattern. The peak pharmacologic ECG demonstrated no obvious ECG changes. There were no cardiac dysrhythmias pretest, during pharmacologic infusion, or recovery. There was no complaint of chest discomfort during pharmacologic infusion or recovery. The examination was discontinued secondary to completion of protocol. Impression: 1. Pharmacologic (Regadenoson) evaluation 2. Peak pharmacologic ECG with continued left bundle branch block pattern with no obvious ECG changes. 3. There were no cardiac dysrhythmias pretest, during pharmacologic infusion, or recovery. 4. Nuclear images pending Myocardial perfusion imaging study: Technique: The patient was injected with 14.6 millicuries of technetium 99m Cardiolite and subsequently rest SPECT Cardiolite nuclear imaging was obtained in the horizontal long, vertical long, and short axis views. The patient underwent pharmacologic (Regadenoson) evaluation with a peak heart rate of 96 beats per minute (64% percent predicted maximal heart rate) and a peak blood pressure of 132/80 mmHg. The patient was injected with 45.0 millicuries of technetium 99m Cardiolite and subsequently stress SPECT Cardiolite nuclear imaging was obtained in the horizontal long, vertical long, and short axis views. A gated Cardiolite study at peak stress was obtained. Interpretation: Rest and stress SPECT Cardiolite nuclear imaging status post realignment, normalization, and attenuation correction demonstrate the appearance status post stress of an area of diminished myocardial perfusion/tracer uptake in portions of the distal anteroseptal segments. There is end systolic thickening and brightening. The gated Cardiolite study demonstrates myocardial thickening and inward wall motion. The reported LVEF is 53%. Impression: 1. Rest and stress SPECT her nuclear imaging demonstrate myocardial perfusion changes potentially compatible with an area of stress-induced myocardial ischemia involving portions of the distal anteroseptal segments, however, an element of artifact related to an underlying left bundle branch block pattern cannot necessarily be excluded. 2. The gated Cardiolite study reports an LVEF of 53%. This note was generated with [employer] software. It may contain incorrect words, spelling, and punctuation that were not noted in checking the note before signing.
== END | disposition home or self-care (01) ==
PROVIDERS: PCP Family Medicine; Referring Provider Nurse Practitioner Family; Visit Provider Nurse Practitioner Family
DX: R06.02 Shortness of breath (principal)
CPT/HCPCS: 78452; 93017; A9500; A4216; J2785

== ENCOUNTER → 2021-12-10 | Outpatient (CLI) | payer MEDICARE, SELFPAY ==
--- NOTE | 2021-12-10 13:12 | ECHOD_ITS ---
Reason For Study: PRE PROCEDURE Procedure This was a 2D Doppler, Color Flow transthoracic echocardiogram. The study was technically difficult. Contrast injection was performed. Exam performed in department. Left Ventricle Based upon the 2D echocardiographic and contrast enhanced images obtained there appears to be grossly normal left ventricular size with global left ventricular systolic dysfunction. The estimated ejection fraction is 50 %. Septal motion consistent with IVCD. Diastolic function is indeterminate. Right Ventricle Based upon the 2D echocardiographic images obtained appears to be grossly normal right ventricular size and systolic function. Atria The left atrium is not well visualized. The right atrium is not well visualized. Mitral Valve There is no mitral annular calcification. Normal mitral valve. Tricuspid Valve The tricuspid valve is not well visualized. Aortic Valve The aortic valve is not well visualized. Pulmonic Valve The pulmonic valve is not well visualized. Great Vessels The aortic root is not well visualized. Pericardium/Pleural No pericardial effusion. Medication 22 gauge I.V. with prn adaptor inserted into right arm. Diluted definity 3ml given slow IV push to enhance endocardial definition. Doppler Measurements & Calculations MV E max alexi: 64.9 cm/sec Lat Peak E' Alexi: 4.2 cm/sec Med Peak E' Alexi: 4.8 cm/sec MV A max alexi: 82.2 cm/sec E/E' lat: 15.5 E/E' med: 13.6 MV E/A: 0.79 Ao V2 max: 146.4 cm/sec LV V1 max: 99.8 cm/sec MR max alexi: 246.5 cm/sec Ao max P.6 mmHg LV V1 max P.0 mmHg MR max P.3 mmHg PA V2 max: 115.6 cm/sec ECHO/Echo Complete W/ Contrast Interpretation Summary The study was technically difficult. Contrast injection was performed. Based upon the 2D echocardiographic and contrast enhanced images obtained there appears to be grossly normal left ventricular size with global left ventricular systolic dysf unction. The estimated ejection fraction is 50 %. Septal motion consistent with IVCD. Diastolic function is indeterminate. Ordering Physician: Francisco Case Referring Physician: Francisco Case Performed By: Queta Naranjo RCS
== END | disposition home or self-care (01) ==
LOC: CVS 13:11
PROVIDERS: PCP Family Medicine; Referring Provider Nurse Practitioner Family; Visit Provider Nurse Practitioner Family
DX: I25.10 Atherosclerotic heart disease of native coronary artery without angina pectoris (principal)
CPT/HCPCS: 93306; Q9957; A4216; C8929

== ENCOUNTER 2021-12-17 07:23 | Day surgery (SDC) | payer MEDICARE, SELFPAY ==
--- NOTE | 2021-12-10 13:14 | RAD_ITS ---
EXAM: XR CHEST, 2 VIEWS CLINICAL INDICATION: PREOP TECHNIQUE: Frontal and lateral views of the chest. This report was created using [employer] report generation technology. COMPARISON: 10/11/2020. FINDINGS: LUNGS AND PLEURAL SPACES: Unremarkable. No consolidation or edema. No pneumothorax. No effusion. HEART: Stable mild cardiomegaly. MEDIASTINUM: Central airways and mediastinal contour are unremarkable. BONES/JOINTS: Unremarkable. SOFT TISSUES: Unremarkable. RAD/Chest PA and Lateral IMPRESSION: Stable mild cardiomegaly. No acute abnormality. Electronically Signed: Odilon Nair MD at 2:34 EDT ,
[2021-12-10 13:29] LABS: Absolute Lymphocyte Count 2.49 X10^3/uL (0.83-4.51); Absolute Neutrophil Count 6.1 X10^3/uL (2.0-7.7); Basophil# 0.05 X10^3/uL; Basophil% 0.5 % (0-1); Eosinophil# 0.12 X10^3/uL; Eosinophils% 1.3 % (0-5); Hematocrit 42.2 % (37-47); Hemoglobin 13.5 g/dL (12.0-15.0); Lymphocyte # 2.49 X10^3/ul (0.83-4.51); Lymphocyte % 26.7 % (19-41); Mean Corpuscular Hgb 30.3 pg (27.0-32.0); Mean Corpuscular Volume 94.6 fL (81-99); Mean Platelet Vol. 10.5 fl (6.2-12.0); Monocyte# 0.57 X10^3/uL; Monocyte% 6.1 % (0-10); NRBC Flagged by Analyzer 0 % (0-5); Neutrophil # 6.05 X10^3/uL (2.7-7.7); Neutrophil % 65.1 % (47-70); Platelet Count 219 K/mm3 (150-450); RBC Distribution Width CV 12.8 % (11.6-14.6); RBC Distribution Width SD 44.5 fl (35.1-43.9); Red Blood Count 4.46 M/mm3 (4.2-5.4); White Blood Count 9.3 K/mm3 (4.4-11.0)
[2021-12-10 13:39] LABS: Prothrombin Time (Protime)PT. 12.8 SECONDS (11.7-14.9)
[2021-12-10 13:40] LABS: Partial Thromboplast Time 27.9 Seconds (24.1-36.2)
[2021-12-10 13:44] LABS: Anion Gap 5 (5-15); BUN 21 mg/dL (7-18); BUN/Creat Ratio 21.9 RATIO (10-20); Chloride 102 mmol/L (98-107); Creatinine, Serum 0.96 mg/dL (0.55-1.02); EST Glomerular Filtration Rate 61 mL/min (>60); Est Glom Filt Rate - Afr Amer 74 mL/min (>60); Glucose 95 mg/dL (74-106); Potassium 4.5 mmol/L (3.5-5.1); Sodium Level 138 mmol/L (136-145)
--- NOTE | 2021-12-15 10:21 | PCM.HP.BLA ---
History and Physical Date of Admission: 12/17/21 [facility] [address] [place], [place] [address] OFFICE VISIT Date of Service:? 07/08/21 MR#: [id number] Acct: [id number] Name:GRUPO PEREZ Rep #: [id number] : 1950 ? Provider: ?ARIE Case Age/Sex:? 71/F ?Location: [facility] Status: Signed with Addenda ADDENDUM by? ARIE Case on 12/04/21 at 0910 Addendum Addendum Details:: Patient underwent a stress test on 12/03/2021 that showed myocardial perfusion changes potentially compatible with an area of stress-induced myocardial ischemia involving portions of the distal anteroseptal segments, however, an element of artifact related to an underlying left bundle branch block pattern cannot necessarily be excluded. On account of abnormal stress test and ongoing shortness of breath, she was asked to undergo a heart catheterization to assess further.? Her last heart catheterization was noted in April 2005 and showed elevated LVEDP compatible with decreased diastolic compliance, ejection fraction 40%, left main is angiographically normal, LAD was 0-10% minimal luminal irregularities, LCx is angiographically normal, intermediate ramus with 25% stenosis, RCA that was a moderate codominant vessel is angiographically normal, and mild mitral regurgitation. COVID-19 Procedure Addendum: Procedure: Elective The surgeon/proceduralist and patient have discussed in detail the risk of exposure to and/or potential harm posed by the COVID-19 virus with having a surgery/procedure at this time versus the risk of? delaying the surgery/procedure. It is not possible to know either the risk of delaying the surgery or procedure or chance of getting an infection with perfect accuracy, but a joint decision was made between the patient and the surgeon/proceduralist to proceed at this time with the scheduled surgery/procedure as indicated on the consent form. 12/04/21 0910 <Electronically signed by Francisco SARGENT> Date Francisco Case NP BUILDING REPAIR MAINTENANCE SUPERVISOR-C cc:? Dr. Vadim Weller MD ~* Signed HPI HPI History of Present Illness Details: This is a 71-year-old white female who presents today for outpatient cardiovascular follow-up of her history of non-CAD related cardiomyopathy, CAD-nonangiographically significant, palpitations, PAT, near syncope/syncope, hyperlipidemia, and hypertension. She denies chest, arm, jaw, or neck discomfort.? She acknowledges rare palpitations.? She acknowledges shortness with activity such as carrying something up the steps and believes this to be at baseline today.? She denies shortness of breath at rest.? She denies lightheadedness, dizziness, or orthostatic symptoms.? She acknowledges fatigue. Intake Vital Signs ? 07/08/2209:59 Height 5 ft 5 in Weight: 258 lb 4 oz BMI 43.0 BP 102/64 Blood Pressure Location Lt brachial Position Sitting Respiration 18 Pulse 68 Pulse Source Auscultation Intake Visit Reasons:?3 M FU [place] Required: No Accompanied by: Self Allergies azithromycin [From Zithromax] Allergy (Verified 07/08/21 10:59) Othercolesevelam [From WelChol] Adverse Reaction (Severe, Verified 07/08/21 10:59) Constipationcolestipol [From Colestid] Adverse Reaction (Severe, Verified 07/08/21 10:59) Abdominal bloating,lkczslrufsejTuamfwz-Hwe-Cvs Reductase Inhibitor Adverse Reaction (Severe, Verified 07/08/21 10:59) Myalgiastelithromycin [From Ketek] Adverse Reaction (Severe, Verified 07/08/21 10:59) Unknown Medications aspirin 81 mg PO DAILY@0800 08/20/13 [History Confirmed 07/08/21] cholecalciferol (vitamin D3) 5,000 unit PO QODAY 01/05/17 [History Confirmed 07/08/21] omeprazole 20 mg tablet,delayed release 20 mg PO DAILY 12/04/19 [History Confirmed 07/08/21] lisinopril 20 mg tablet 20 mg PO QDAY #90 tab 01/15/21 [Rx Confirmed 07/08/21] potassium chloride 20 mEq tablet,extended release 20 meq PO DAILY #90 tab 01/23/21 [Rx Confirmed 07/08/21] furosemide 40 mg tablet 40 mg PO DAILY #90 tab 02/28/21 [Rx Confirmed 07/08/21] carvedilol 25 mg tablet 25 mg PO BID #180 tab 03/03/21 [Rx Confirmed 07/08/21] prednisone 5 mg tablet 5 mg PO Q OTHER DAY 07/08/21 [History Confirmed 07/08/21] PFSH Medical History? Abnormal Pap smear of cervix Atherosclerotic heart disease of [place] coronary artery without angina pectoris Atrial paroxysmal tachycardia CAD (coronary artery disease) Cardiomyopathy Cardiovascular disease Chest pain Dysuria Edema Encounter for long-term current use of high risk medication Essential hypertension GERD (gastroesophageal reflux disease) HLD (hyperlipidemia) Hypertension Left bundle-branch block Nonischemic cardiomyopathy Palpitations Pure hypercholesterolemia Right ovarian cyst Snoring Syncope Syncope Surgical History? cyst on throat H/O tubal ligation Hx of cholecystectomy Status post laparoscopic assisted vaginal hysterectomy (LAVH) Family History? Father DiabetesMother Arthritis Social History? Smoking Status:? Former smoker alcohol intake:? never substance use type:? does not use caffeine:? Yes frequency:? 1-2 times per week seatbelt use:? always do you feel safe at home:? Yes additional social history:? and retired ? ROS Const Const: Positive for fatigue; Negative for weakness, frequent falls, excessive sweating, weight gain or weight loss Eyes Eyes: Negative for transient loss of vision, blurry vision or change in vision ENT ENT: Negative for dizziness or balance problems Cardio Chest Pain: No Palpitations: Yes (Rare) feels like its: fast Edema: None Muscle aches with walking: None Resp Respiratory: Positive for SOB with activity (carrying items, going upstairs baseline); Negative for SOB at rest GI GI: Negative vomiting or vomiting blood/hematemesis : Negative for hematuria Musc Musc: Positive for muscle aches/ myalgia (cramps Bilat LE at night); Negative for muscle weakness, joint pain or balance problems Skin Skin: Negative non-healing lesions or rash Neuro Neuro: Negative for dizziness, lightheadedness, orthostatic symptoms, frequent falls, weakness or blurry vision Jose Hematologic/Lymphatic: Negative for easy bleeding Endo Endo: Positive for fatigue; Negative for excessive sweating Psych Psych: Negative for anxiety or depression Allergy Allergy/Immunology: Negative for hives and Negative for rash Cardiology Exam Const Appearance: cooperative, healthy appearing, comfortable and no acute distress Nutritional Appearance: well nourished and obese Orientation: alert, awake and oriented x3 Head Head: normal to inspection Ears: hearing grossly normal bilaterally Nose: external nose normal Face and Sinus: face symmetric Mouth: oral mucosae normal Eyes General: appearance normal, both eyes and all related structures Eyelids: eyelids normal EOM: EOM intact bilaterally Neck Neck: normal visual inspection and no JVD Carotids: normal carotid upstroke Chest Chest inspection: normal inspection of the chest, symmetric chest movement and normal respiratory effort; Negative cough Auscultation: Bilateral: Clear to Auscultation Cardio Rate: regular rate Rhythm: regular rhythm Heart sounds: S1 normal and S2 normal; Negative rub, gallop or murmur GI GI: normal to inspection and obese Neuro General: patient alert, patient awake, patient oriented x3 and CN's II-XI intact bilaterally Skin Skin: no rashes or lesions noted Extremities Pulses: Normal: Right Posterior Tibial Pulse, Left Posterior Tibial Pulse, Right Radial Pulse and Left Radial Pulse Lower Extremity Edema: None: Bilateral Psych Psychological: normal affect Assessment and Plan Assessment and Plan (1) Atherosclerotic heart disease of [place] coronary artery without angina pectoris: ?Status:?Chronic ?Qualifiers: ?[place] vs. transplanted heart:?[place] heart? Qualified Code(s):?I25.10 - Atherosclerotic heart disease of [place] coronary artery without angina pectoris ?Plan - Francisco Case BUILDING REPAIR MAINTENANCE SUPERVISOR, BUILDING REPAIR MAINTENANCE SUPERVISOR-C: Her heart catheterization in April 2005 showed minimal coronary artery disease. Her last stress test in January 2017 was negative for ischemia. Her most recent echocardiogram from October 2020 showed ejection fraction of 50% and septal motion consistent with IVCD.? Her chest tightness has resolved since last office visit.? Since such time she was treated with prednisone therapy for Polymyalgia rheumatica.? We will continue to monitor her discomfort and consider progressive coronary artery disease on an ongoing basis based on symptoms. (2) Nonischemic cardiomyopathy: ?Status:?Chronic ?Plan - Francisco Case NP, BUILDING REPAIR MAINTENANCE SUPERVISOR-C: Her most recent echocardiogram showed ejection fraction of 50%. She denies symptoms of congestive heart failure. She will continue current medical therapy with carvedilol 25 mg p.o. twice daily, lisinopril 20 mg p.o. daily, and Lasix therapy. We will continue to monitor. (3) Pure hypercholesterolemia: ?Status:?Chronic ?Doug Case NP, BUILDING REPAIR MAINTENANCE SUPERVISOR-C: She will continue risk factor and lifestyle modification. She is currently not on cholesterol-lowering medication. She does acknowledge intolerance to statin and nonstatin medication. She is not interested in trialing different medication such as Zetia. She states this is being monitored by PCP. (4) Essential hypertension: ?Status:?Chronic ?Doug Case NP, BUILDING REPAIR MAINTENANCE SUPERVISOR-C: Patient's blood pressure is well-controlled.? We will continue to monitor. We will not make any medication regimen changes. (5) Atrial paroxysmal tachycardia: ?Status:?Chronic ?Duog Case NP, BUILDING REPAIR MAINTENANCE SUPERVISOR-C: Her most recent 48-hour Holter monitor from November 2020 showed PACs, PVCs, ectopic atrial rhythm/tachycardia lasting for 8 beats, and no wide-complex runs. Since Holter monitor, she has increased her Coreg therapy. She denies any reoccurring palpitations. She will continue current medical therapy and we will continue to monitor. (6) Syncope: ?Status:?Acute ?Qualifiers: ?Syncope type:?unspecified? Qualified Code(s):?R55 - Syncope and collapse ?Doug Case NP, BUILDING REPAIR MAINTENANCE SUPERVISOR-C: She denies any reoccurring episodes. Her heart and blood pressure is controlled. We will continue to monitor. (7) Shortness of breath: ?Status:?Acute ?Doug Case NP, BUILDING REPAIR MAINTENANCE SUPERVISOR-C: This appears to be chronic and not worsening.? She was asked to continue to follow with pulmonology for pulmonary component.? If her symptoms worsen, will consider stress test to assess coronary artery disease and an anginal equivalent. (8) Cough: ?Status:?Resolved ?Doug Case NP, BUILDING REPAIR MAINTENANCE SUPERVISOR-C: She does knowledge improvement with this since. She will continue to follow with pulmonology team for pulmonary component. Plan Details Additional Comments: Thank you for allowing me to participate in the care of your patient.? Please don't hesitate to call if any issues arise. This note was generated using a voice recognition system and there may be incorrect words, spelling or punctuation that were not noted when reviewing the office note prior to saving. Follow Up: ? ? [facility]?(CT chest, Pulmonary office visit) ? ? Keep as is?(PFM) Coding Level of Care Code Off vis,est,level 3 Diagnoses Atherosclerotic heart disease of [place] coronary artery without angina pectoris? I25.10 ? ? ? [place] vs. transplanted heart: [place] heart Nonischemic cardiomyopathy? I42.8 Pure hypercholesterolemia? E78.00 Essential hypertension? I10 Atrial paroxysmal tachycardia? I47.1 Syncope? R55 ? ? ? Syncope type: unspecified Shortness of breath? R06.02 Cough? R05 Coding Level of Care Code Off vis,est,level 3 Diagnoses Atherosclerotic heart disease of [place] coronary artery without angina pectoris? I25.10 ? ? ? [place] vs. transplanted heart: [place] heart Nonischemic cardiomyopathy? I42.8 Pure hypercholesterolemia? E78.00 Essential hypertension? I10 Atrial paroxysmal tachycardia? I47.1 Syncope? R55 ? ? ? Syncope type: unspecified Shortness of breath? R06.02 Cough? R05 Supplemental Info Supplemental Information Echocardiogram from 10/25/2020: Interpretation Summary The study was technically difficult. Contrast injection was performed. ? Mild global left ventricular systolic dysfunction. The estimated ejection fraction is 50 %. Septal motion consistent with IVCD. The left atrium is mildly enlarged. Mild (1+) mitral valve insufficiency. Trivial tricuspid valve insufficiency. Unable to estimate RV systolic pressure/pulmonary artery pressure due to technically difficult study. Diastolic function is indeterminate. She did have a?transthoracic echocardiogram performed on 09/02/2018 Interpretation Summary The study was technically difficult. Contrast injection was performed. Mild global left ventricular systolic dysfunction. The estimated ejection fraction is 45 %. Septal motion consistent with IVCD. The left atrium is mildly enlarged. Trivial mitral valve insufficiency. Trivial tricuspid valve insufficiency. Unable to estimate RV systolic pressure/pulmonary artery pressure due to technically difficult study. Diastolic function is indeterminate. He had an?exercise tolerance test/imaging study performed on 01/06/2017. Pharmacologic myocardial perfusion stress test 66-year-old lady with a history of syncope left bundle branch block and cardiomyopathy. EKG demonstrates sinus bradycardia with a rate of 55 bpm and left bundle branch block patent.? Resting blood pressure is 136/78. Perfusion protocol. 0.4 mg of regadenoson was infused per usual protocol followed by rapid intravenous saline flush injection continuous EKG monitoring was performed.? The maximum heart rate attained was 91 bpm which was 59% of maximum predicted heart rate in the maximum workload attained was 1 METS.? The patient maintained sinus rhythm throughout the recording maintaining a left bundle branch block patent.? There were no ST or T-wave changes noted to suggest abnormal flow reserve.? The resting blood pressure was 136/78 with a final blood pressure of 118/78. Myocardial perfusion protocol. 15.0 mCi of technetium 99m sestamibi was injected at rest.? 0.4 mg of regadenoson was then infused per usual protocol and at peak infusion 44.8 mCi of technetium 99m sestamibi was injected.? Stress and resting images were reconstructed and compared in the short axis vertical long horizontal long axis. Perfusion analysis.? Review of the images demonstrate normal uptake of tracer noted in all areas of the myocardium except for small portion of the anterior septal wall with reduced perfusion.? This appears to be present on the stress and resting images to a similar extent likely consistent with a left bundle branch block pathology.? No obvious areas of reversibility are noted suggest ischemia. Gated SPECT analysis: The gated ejection fraction was noted to be 57%. Conclusion: Pharmacologic myocardial perfusion stress test with evidence of septal perfusion abnormality likely consistent with left bundle branch block pathology.? No obvious ischemia is noted. She had a previous?diagnostic cardiac catheterization performed on 04/24/2005 at [facility]. 1) Elevation of the left ventricular end diastclic pressures compatible with decreased diastolic compliance. 2) Left ventricle?borderline enlargement with mild global left ventricular systolic dysfunction with an estimated LV EF of 40%. 3) Left main?angiographically normal. 4) LAD-status post first diagonal branch. There was a short segment with 0?10% minimal luminal irregularities. 5) LCX-angiographically normal. 6) Intermediate ramus?ostial/proximal 25% concentric appearing stenoses. 7) RCA-moderate codominant vessel with very small short right PDA and appearing angiographically normal. 8) Mitral valve?Mild mitral regurgitation. 48-hour Holter monitor from November 2020: Sinus rhythm; PACs; PVCs; ectopic atrial rhythm/tachycardia with the longest episode lasting 8 beats; no wide-complex runs; symptoms reported did not appear to correlate with the scan. Labs: ?? ? No Data to Display Diagnostics: ?? ? Echocardiogram ? Chest X-Ray ? Pulmonary: ?? ? No Data to Display 07/08/21 1214 <Electronically signed by Francisco Case NP BUILDING REPAIR MAINTENANCE SUPERVISOR-C> Date Francisco Case NP BUILDING REPAIR MAINTENANCE SUPERVISOR-C Cosigner Signature: Date (if applicable) CC:? Dr. Vadim Weller MD ~ Assessment & Plan Addt'l Comments Addendum: The patient had concerns of progressive shortness of breath and dyspnea that appeared to be otherwise unexplained. Thus she was asked undergo further evaluation from a noninvasive cardiovascular standpoint. This started with an exercise tolerance test/imaging study in the way of a pharmacologic stress nuclear imaging study. The results are noted below. Based upon the study it was elected to consider further evaluation with diagnostic cardiac catheterization. In the interim she was also asked undergo further evaluation with a transthoracic echocardiogram to reassess her left ventricular wall motion and systolic function. The results are noted below. On examination it is noted that: Lungs: Clear to auscultation percussion bilaterally Cardiovascular exam: Regular rhythm with normal S1 and S2 Overall the patient has the aforementioned cardiovascular diagnoses. Based upon her history and her ongoing concerns and results of objective studies it was recommended she undergo evaluation with diagnostic cardiac catheterization. The patient underwent evaluation with a transthoracic echocardiogram on 12-10-2021. The results are noted below. Interpretation Summary The study was technically difficult. Contrast injection was performed. ? Based upon the 2D echocardiographic and contrast enhanced images obtained there appears to be grossly normal left ventricular size with global left ventricular systolic dysfunction. The estimated ejection fraction is 50 %. Septal motion consistent with IVCD. Diastolic function is indeterminate. The patient had previously undergone evaluation with an exercise tolerance test/imaging study on 12-03-2021. The results are noted below. Stress Test Report Date: 12-03-2021 Procedure: Pharmacologic stress nuclear imaging study? Indications: Shortness of breath/dyspnea on exertion; CAD; cardiomyopathy; cardiac dysrhythmia; left bundle branch block Consent: Per the patient Procedure: The patient underwent pharmacologic (Regadenoson 0.4mg ) evaluation with a peak heart rate of 96 beats per minute (64%predicted maximal heart rate) and a peak blood pressure of 132/80 mmHg. The baseline ECG demonstrated sinus bradycardia; left bundle branch block pattern.? The peak pharmacologic ECG demonstrated no obvious ECG changes. There were no cardiac dysrhythmias pretest, during pharmacologic infusion, or recovery. There was no complaint of chest discomfort during pharmacologic infusion or recovery. The examination was discontinued secondary to completion of protocol. Impression: 1.? Pharmacologic (Regadenoson) evaluation 2.? Peak pharmacologic ECG with continued left bundle branch block pattern with no obvious ECG changes. 3.? There were no cardiac dysrhythmias pretest, during pharmacologic infusion, or recovery. 4.? Nuclear images pending Myocardial perfusion imaging study: Technique: The patient was injected with 14.6 millicuries of technetium 99m Cardiolite and subsequently rest SPECT Cardiolite nuclear imaging was obtained in the horizontal long, vertical long, and short axis views. The patient underwent pharmacologic (Regadenoson) evaluation with a peak heart rate of 96 beats per minute (64% percent predicted maximal heart rate) and a peak blood pressure of 132/80 mmHg. The patient was injected with 45.0 millicuries of technetium 99m Cardiolite and subsequently stress SPECT Cardiolite nuclear imaging was obtained in the horizontal long, vertical long, and short axis views.? A gated Cardiolite study at peak stress was obtained. Interpretation: Rest and stress SPECT Cardiolite nuclear imaging status post realignment, normalization, and attenuation correction demonstrate the appearance status post stress of an area of diminished myocardial perfusion/tracer uptake in portions of the distal anteroseptal segments.? There is end systolic thickening and brightening.? The gated Cardiolite study demonstrates myocardial thickening and inward wall motion.? The reported LVEF is 53%. Impression: 1.? Rest and stress SPECT her nuclear imaging demonstrate myocardial perfusion changes potentially compatible with an area of stress-induced myocardial ischemia involving portions of the distal anteroseptal segments, however, an element of artifact related to an underlying left bundle branch block pattern cannot necessarily be excluded. 2.? The gated Cardiolite study reports an LVEF of 53%. Based upon the patient's clinical course and objective studies it was recommended the patient undergo further evaluation with diagnostic cardiac catheterization. The procedure and risk were discussed with the patient. She was agreeable to this approach. I have re-examined the patient. There are no clinical changes since date of exam
[2021-12-16 09:09] VITALS: BMI 42.9
--- NOTE | 2021-12-17 10:22 | CL.D_ITS ---
Patient Name: GRUPO DARDEN Study Date: 12/17/2021 Performing: Vivek Lemus MD Ht: 64.96 inches 165 cm : 1950 Wt: 257.94 lbs 117 kg Age: 71 Gender: female BSA: 2.2 PROCEDURE(S) PERFORMED [id number]-([id number])LHC/COR/LV CLINICAL PROFILE AND INDICATIONS Indications: Suspected CAD, Cardiomyopathy Heart Failure: None Stress/Imaging Date: 12/03/2021tress Test with SPECT MPI: Positive Intermediate Risk Angina Classification Anginal Classification w/in 2 Weeks: Anginal Equivalent Dyspnea CAD Presentations: Other: dyspnea on exertion CONCLUSIONS Elevated Left Ventricular End Diastolic Pressure Global LV systolic dysfunction- Mild LVEF: by LV gram 50 % Double vessel CAD of the LAD and IR: non obstructive RECOMMENDATIONS Risk factor modification Medical therapy Case discussed / reviewed with Dr. Mathews of Interventional Cardiology DESCRIPTION OF PROCEDURE The patient arrived to the procedure lab. The risks and benefits of the procedure as well as a full d escription of our services here and current unavailability of surgical backup were fully explained to the patient and/or their significant other prior to the catheterization. The Timeout was completed, verifying the correct patient and procedure. The patient's procedural site was prepped and draped in the usual fashion. Local anesthetic was given subcutaneously to right radial region with Lidocaine 2% . Using a modified Seldinger technique, arterial access was obtained via the right radial artery, a 6 Fr sheath was inserted. Left Coronary Artery selective angiography was performed in multiple views u sing a 5 Fr. 4.0 Chatham catheter. Right Coronary Artery selective angiography was then performed in mu ltiple views using a 5 Fr. JR 4 catheter. Left Ventriculography was performed in TORRES projection using a 5 Fr. Pigtail catheter. LV to AO pullback pressures were then recorded.The arterial sheath was pulled and a TR Band was applied for hemostasis with 12cc of air placed in band. CORONARY ANGIOGRAPHY DOMINANCE: Co- Dominant LEFT HEART ASSESSMENT Left Ventricular Ejection Fraction: by LV Gram 50 % Global Hypokinesis Elevated Left Ventricular End Diastolic Pressure LVEDP: 29 mmHg LEFT ANTERIOR DESCENDING ARTERY: MID LAD: Mild luminal irregularities CIRCUMFLEX ARTERY: Angiographically normal RAMUS: ostial: eccentric: 25 % Stenosis RIGHT CORONARY ARTERY: Angiographically normal AORTIC ROOT: Angiographically normal COMPLICATIONS No Complications PROCEDURE MEDICATIONS Versed 1 mg IV Fentanyl 50 mcg IV Oxygen: 2 L/min via nasal cannula Heparin given IA 12/17/2021 09:28:52 Verapamil 2.5mg, Ntg 100mcgs, 3000 units of Heparin given IA 12/17/2021 09:28:52 SUMMARY OF HEMODYNAMIC DATA Time AIR REST ECG 08:04:24 AO 118/67 (86) SA 09:33:15 LV 137/13, 29 09:43:48 LV 136/14, 29 09:43:55 LV 139/18, 36 09:44:53 LVp 135/14, 32 09:45:00 AOp 137/59 (81) 09:45:05 Signed By Vivek Lemus MD On 12/17/2021 10:21:15 Vivek Lemus MD
== END 2021-12-17 12:20 | disposition home or self-care (01) ==
LOC: CLSP 07:24
PROVIDERS: Nurse Practitioner Family; PCP Family Medicine; Referring Provider Internal Medicine Cardiovascular Disease; Visit Provider Internal Medicine Cardiovascular Disease
DX: I25.118 Atherosclerotic heart disease of native coronary artery with other forms of angina pectoris (principal); I42.8 Other cardiomyopathies; I10 Essential (primary) hypertension; E66.9 Obesity, unspecified; K21.9 Gastro-esophageal reflux disease without esophagitis; Z79.82 Long term (current) use of aspirin; R06.02 Shortness of breath; Z79.899 Other long term (current) drug therapy; Z87.891 Personal history of nicotine dependence
CPT/HCPCS: 36415; 71046; 80048; 85025; 85610; 85730; 93458; 99152; 99153; J7030; Q9967; C1769; C1894

== ENCOUNTER → 2021-12-30 | Outpatient (CLI) | payer MEDICARE, SELFPAY ==
--- NOTE | 2021-12-31 11:52 | PFT ---
INTRODUCTION: The patient is a 71-year-old female that presents for pulmonary function studies secondary to a diagnosis of shortness of breath. Respiratory therapy reported good patient effort. Bronchodilators were used during testing. INTERPRETATION: Forced expiration spirometry demonstrates the presence of a severe large airways obstructive ventilatory defect. There was no significant response to aerosolized bronchodilators. Spirograms are of good quality but do not plateau indicating slow emptying of the lungs. Body plethysmography was performed and revealed a decreased TLC to 4.07 L, 81% of predicted, indicative of a mild restrictive ventilatory impairment. Diffusing capacity by single breath CO is reduced at 47% of predicted. IMPRESSION: Irreversible severe mixed ventilatory defect with symmetric reduction in diffusing capacity.
== END | disposition home or self-care (01) ==
LOC: PSN 12:10
PROVIDERS: PCP Family Medicine; Referring Provider Internal Medicine Cardiovascular Disease; Visit Provider Internal Medicine Cardiovascular Disease
DX: R06.02 Shortness of breath (principal)
CPT/HCPCS: 94060; 94726; 94729

== ENCOUNTER → 2022-02-19 | Outpatient (CLI) | payer MEDICARE, SELFPAY ==
[2022-02-19 13:06] VITALS: PULSE 62; PULSE 67; PULSE 72; PULSE 76; PULSE 78; PULSE 79; PULSE 82; O2SAT 89; O2SAT 90; O2SAT 94; O2SAT 95; O2SAT 96
--- NOTE | 2022-02-19 13:37 | WT_ITS ---
PSN 6 Minute Walk Test 6 Minute Walk Test 6 Minute Walk Test: 6 Minute Walk Test PSN:6-Minute Walk Test Start: 02/19/22 13:06 Freq: Status: Active Protocol: RESP.6MINW Document 02/19/22 13:06 [facility] (Rec: 02/19/22 13:09 [facility] [id number]) 6 Minute Walk Test Date Performed 02/19/22 Time Performed 13:00 Height 5 ft 5 in Weight: 114.305 kg Weight in Pounds 252.[address]: Dr Lee Assistive device used: None Pre-test Oxygen Delivery Method Room Air Pulse Ox (%) 95 Pulse Rate (60-100 beats/min) 62 Dyspnea Saira Scale (0-10) 0 Exertion Saira Scale (6-20) 6 1st minute Oxygen Delivery Method Room Air Pulse Ox (%) 94 Pulse Rate (60-100 beats/min) 72 2nd minute Oxygen Delivery Method Room Air Pulse Ox (%) 90 Pulse Rate (60-100 beats/min) 76 3rd minute Oxygen Delivery Method Room Air Pulse Ox (%) 89 Pulse Rate (60-100 beats/min) 78 4th minute Oxygen Delivery Method Room Air Pulse Ox (%) 89 Pulse Rate (60-100 beats/min) 78 5th minute Oxygen Delivery Method Room Air Pulse Ox (%) 89 Pulse Rate (60-100 beats/min) 82 6th minute Oxygen Delivery Method Room Air Pulse Ox (%) 90 Pulse Rate (60-100 beats/min) 79 Dyspnea Saira Scale (0-10) 0.5 Exertion Saira Scale (6-20) 11 Post-test Oxygen Delivery Method Room Air Pulse Ox (%) 96 Pulse Rate (60-100 beats/min) 67 Full Laps Walked 13 Partial Lap, Number of Tiles Walked 11 Total Distance Walked (ft) 778 Interpretation Interpretation: Patient was noted to be 95% on room air at rest. The patient then ambulated 778 feet over the course of 6 minutes on room air with no assistive devices or breaks. The patient did significantly desaturate as low as 89%, but required no supplemental oxygen. No significant tachycardia was noted. These findings are consistent with a respiratory limitation exercise tolerance. Recommendations Recommendations: No supplemental oxygen is indicated at this time. However, patient will need to be followed closely given level of desaturation.
== END | disposition home or self-care (01) ==
LOC: PSN 12:42
PROVIDERS: PCP Family Medicine; Visit Provider Internal Medicine Critical Care Medicine
DX: J44.9 Chronic obstructive pulmonary disease, unspecified (principal)
CPT/HCPCS: 94618

== ENCOUNTER → 2022-11-25 | Outpatient (CLI) | payer MEDICARE, SELFPAY ==
--- NOTE | 2022-11-25 08:38 | MRI_ITS ---
EXAM: MR LEFT UPPER EXTREMITY WITHOUT INTRAVENOUS CONTRAST, SHOULDER CLINICAL INDICATION: assess RC tendon TECHNIQUE: Multiplanar and multisequence MR images of the left shoulder without intravenous contrast. COMPARISON: No relevant prior studies available. FINDINGS: TENDONS: SUPRASPINATUS: Low-grade articular sided tear of the supraspinatus tendon at the footprint. INFRASPINATUS: Unremarkable. Intact. SUBSCAPULARIS: Distal superior subscapularis tendon shows signal alteration of raises concern for a partial-thickness up to moderate grade tear. TERES MINOR: Unremarkable. Intact. BICEPS BRACHII, LONG HEAD: Unremarkable. The extra-articular biceps tendon is in the bicipital groove. The intra-articular biceps tendon is normal. LIGAMENTS: GLENOHUMERAL: Unremarkable. Intact. MUSCLES: Unremarkable. No rotator cuff muscle atrophy. FLUID: At least moderate size glenohumeral joint effusion with synovitis. Moderate hypertrophic degenerative changes acromioclavicular joint with up to moderate mass effect on the underlying soft tissues. Moderate amount of fluid in the subacromial/subdeltoid bursa compatible with bursitis. CARTILAGE: Unremarkable. Articular cartilage intact. GLENOID LABRUM: Unremarkable. Intact, limited evaluation on non-arthrographic exam. BONES/JOINTS: Severe osteoarthrosis of the glenohumeral joint. Small cyst at the medial aspect of the humeral head. Type II acromion with curved undersurface. No subacromial subacromial enthesophyte. No os acromiale. Global labral degeneration. OTHER SOFT TISSUES: Unremarkable. No rotator interval edema. MRI/Upper Ext Joint Only(Routine) IMPRESSION: 1. Low-grade articular sided tear of the supraspinatus tendon at the footprint. 2. Possible partial thickness tear of the superior subscapularis tendon. No other rotator cuff tear. 3. Global labral degeneration related to severe glenohumeral joint osteoarthritis 4. At least moderate size glenohumeral joint effusion with synovitis. Moderate hypertrophic degenerative changes acromioclavicular joint with up to moderate mass effect on the underlying soft tissues. 5. Subacromial/subdeltoid bursitis. Electronically Signed: Mu Kaur MD at 21:51 EDT ,
== END | disposition home or self-care (01) ==
PROVIDERS: PCP Family Medicine; Referring Provider Orthopaedic Surgery Sports Medicine; Visit Provider Orthopaedic Surgery Sports Medicine
DX: M25.512 Pain in left shoulder (principal)
CPT/HCPCS: 73221

== ENCOUNTER → 2022-12-19 | Outpatient (CLI) | payer MEDICARE, SELFPAY ==
--- NOTE | 2022-12-19 08:50 | CT_ITS ---
INDICATION: planning reverse total shoulder arthroplasty EXAMINATION: CT BONE - CT Shoulder W/O Contrast Injection TECHNIQUE: Helically acquired images were obtained of the left shoulder. 2-D reformats were performed by the technologist. A radiation dose optimization technique was used for this scan. IV Contrast dosage and agent: None. COMPARISON: None. FINDINGS: SOFT TISSUES: No soft tissue swelling or gas. No radiopaque foreign body. BONES/JOINTS: No acute fracture or subluxation. Joint spaces anatomically aligned. Degenerative changes of the acromioclavicular and more severely of the glenohumeral joint. No sclerotic or destructive changes. CT/Extremity Upper without Contra IMPRESSION: Degenerative changes of the left acromioclavicular and glenohumeral joints. Electronically Signed: Maury Crenshaw MD at 23:20 EDT ,
== END | disposition home or self-care (01) ==
PROVIDERS: PCP Family Medicine; Referring Provider Orthopaedic Surgery Sports Medicine; Visit Provider Orthopaedic Surgery Sports Medicine
DX: M19.012 Primary osteoarthritis, left shoulder (principal)
CPT/HCPCS: 73200

== ENCOUNTER 2023-03-10 14:54 | Observation (INO) | payer MEDICARE, SELFPAY ==
[2023-03-03 09:48] LABS: Absolute Lymphocyte Count 1.86 X10^3/uL (0.83-4.51); Absolute Neutrophil Count 4.5 X10^3/uL (2.0-7.7); Basophil# 0.05 X10^3/uL; Basophil% 0.7 % (0-1); Eosinophils% 1.4 % (0-5); Hematocrit 39.4 % (37-47); Hemoglobin 12.6 g/dL (12.0-15.0); Lymphocyte # 1.86 X10^3/ul (0.83-4.51); Lymphocyte % 26.5 % (19-41); Mean Platelet Vol. 10.2 fl (6.2-12.0); Monocyte# 0.49 X10^3/uL; NRBC Flagged by Analyzer 0 % (0-5); Neutrophil # 4.51 X10^3/uL (2.7-7.7); Neutrophil % 64.1 % (47-70); Platelet Count 185 K/mm3 (150-450); RBC Distribution Width SD 46.6 fl (35.1-43.9); Red Blood Count 4.06 M/mm3 (4.2-5.4)
[2023-03-03 09:56] LABS: International Normalized Ratio 0.9; Partial Thromboplast Time 26.6 Seconds (24.1-36.2); Prothrombin Time (Protime)PT. 12.5 SECONDS (11.7-14.9)
[2023-03-03 10:39] LABS: Anion Gap 3 (5-15); BUN 19 mg/dL (7-18); BUN/Creat Ratio 20.2 RATIO (10-20); Chloride 105 mmol/L (98-107); Creatinine, Serum 0.94 mg/dL (0.55-1.02); EST Glomerular Filtration Rate 62 mL/min (>60); Est Glom Filt Rate - Afr Amer 75 mL/min (>60); Glucose 102 mg/dL (74-106); Potassium 4.2 mmol/L (3.5-5.1); Sodium Level 137 mmol/L (136-145)
[2023-03-03 11:03] LABS: Hemoglobin A1c 5.4 % (3.8-5.6)
[2023-03-03 11:05] LABS: Magnesium 2.5 mg/dL (1.6-2.6)
[2023-03-04 05:07] LABS: Fructosamine 195 umol/L (0-285)
[2023-03-10] VITALS (14 sets, daily range): BP systolic 107–138; BP diastolic 48–77; PULSE 55–66; RESP 16–21; TEMP 35.9–36.6; O2SAT 91–100; BMI 44.4
[2023-03-10] MEDS: Acetaminophen 500 MG Tablet 1000 MG PO ×2 (05:59→22:54)
[2023-03-10] MEDS: Gabapentin 600 MG Tablet PO (05:59)
[2023-03-10] MEDS: Magnesium 1 GM over 15 mins IV (06:00)
[2023-03-10] MEDS: Lactated Ringers 1,000 ML 15 ML IV (06:00)
[2023-03-10] MEDS: Scopolamine 1mg/72hr Patch 1 PATCH TD (06:04)
[2023-03-10] MEDS: Vancomycin HCl 1,750 MG in 0.9% Normal Saline (500mL Bag) 500 ML 250 MG IV (06:32)
[2023-03-10 06:43] LABS: Bedside Glucose 94 mg/dL (74-106)
--- NOTE | 2023-03-10 07:00 | HP.PCM_ITS ---
HPI - General HPI Narrative GRUPO DARDEN, is a 73 F who presents for left shoulder reverse total shoulder arthroplasty. No changes to H and P. OK to proceed. RAB and narcotic counselling. Plan for block. Sling after, FU 2 days. She understands, nothing further. L shoulder marked. MR#: [id number] Acct: [id number] Name: GRUPO DARDEN Rep #: [id number] : 1950 Provider: Dr. Roldan Alvares MD Age/Sex: 72/F Location: [facility] [place].[facility] Status: Signed Intake Vital Signs 11/03/2314:22 Height 5 ft 5 in Intake Visit Reasons: LEFT SHOULDER Chief Complaint: left shoulder pain Is patient in pain?: Yes (left shoulder ) Pain scale (1-10): 6 Allergies azithromycin [From Zithromax] Allergy (Verified 12/21/22 13:40) Othercolesevelam [From WelChol] Adverse Reaction (Severe, Verified 12/21/22 13:40) Constipationcolestipol [From Colestid] Adverse Reaction (Severe, Verified 12/21/22 13:40) Abdominal bloating,shjfyorjwalkOigmusl-ZDV-HfA Reductase Inhibitor [Htkzhog-Hdf-Vvs Reductase Inhibitor] Adverse Reaction (Severe, Verified 12/21/22 13:40) Myalgiastelithromycin [From Ketek] Adverse Reaction (Severe, Verified 12/21/22 13:40) Unknown Medications aspirin 81 mg chewable tablet 81 mg PO DAILY@0800 08/20/13 [History Confirmed 11/27/22] omeprazole 20 mg tablet,delayed release 20 mg PO DAILY 12/04/19 [History Confirmed 11/27/22] potassium chloride 20 mEq tablet,extended release 20 meq PO DAILY #90 tabs 12/18/21 [Rx Confirmed 11/27/22] albuterol sulfate 90 mcg/actuation aerosol inhaler 2 inh inhalation Q6H PRN 01/14/22 [History Confirmed 11/27/22] furosemide 40 mg tablet 40 mg PO DAILY #90 tabs 02/16/22 [Rx Confirmed 11/27/22] lisinopril 20 mg tablet 20 mg PO QDAY #90 tabs 03/19/22 [Rx Confirmed 11/27/22] carvedilol 25 mg tablet 25 mg PO BID Awaiting mail order RX, almost out of meds #180 tabs 03/30/22 [Rx Confirmed 11/27/22] cholecalciferol (vitamin D3) 125 mcg (5,000 unit) capsule 5,000 unit PO DAILY 05/04/22 [History Confirmed 11/27/22] valacyclovir 500 mg tablet 500 mg PO TID 06/09/22 [History Confirmed 11/27/22] fluticasone fur. 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 without angina pectoris Atrial paroxysmal tachycardia CAD (coronary artery disease) Cardiomyopathy Cardiovascular disease Chest pain Dysuria Edema Encounter for long-term current use of high risk medication Essential hypertension GERD (gastroesophageal reflux disease) History of left heart catheterization (LHC) (~12/17/21) HLD (hyperlipidemia) Hypertension Left bundle-branch block Left shoulder pain Nonischemic cardiomyopathy Palpitations Primary osteoarthritis, left shoulder Pure hypercholesterolemia Right ovarian cyst Snoring Syncope Syncope Surgical History cyst on throat H/O tubal ligation Hx of cholecystectomy Status post laparoscopic assisted vaginal hysterectomy (LAVH) Family History Father DiabetesMother Arthritis Social History Smoking Status: Former smoker pack-years: 10 Tobacco: How many years used: 15 Electronic Cigarette Use: not used how long ago did patient quit smoking: Quit in 1999 second hand exposure: Yes alcohol intake: never substance use type: does not use caffeine: Yes frequency: 1-2 times per week seatbelt use: always do you feel safe at home: Yes additional social history: and retired HPI LEFT SHOULDER Details: Parts of this documentation were recorded by a scribe, this documentation accurately reflects the service provided and the decisions made by me, Dr. Roldan Alvares MD 12/21/22 2613. GRUPO DARDEN is a 72 year old F here today for FU L shoulder CT for surgical planning RTSA. Has some grand kids to take care of as well. Still having shoulder pain and interested in surgery. Ortho Exam General General: Yes no acute distress Neurologic: Yes alert and Yes oriented x3 Psychologic: Yes reasonable and appropriate Supplemental Info [facility] [address] [place] [address] Extremity Upper without Contra MR#: [id number] Acct: [id number] Name: GRUPO DARDEN Rep #: [id number] : 1950 F 72 From: Maury Crenshaw MD PCP: Dr. Vadim Weller MD Status: REG CLI Study: Extremity Upper without Contra Date of Exam: 0 12/19/22 Exam# [id number] Ordering Dr: Roldan Alvares MD INDICATION: planning reverse total shoulder arthroplasty EXAMINATION: CT BONE - CT Shoulder W/O Contrast Injection TECHNIQUE: Helically acquired images were obtained of the left shoulder. 2-D reformats were performed by the technologist. A radiation dose optimization technique was used for this scan. IV Contrast dosage and agent: None. COMPARISON: None. FINDINGS: SOFT TISSUES: No soft tissue swelling or gas. No radiopaque foreign body. BONES/JOINTS: No acute fracture or subluxation. Joint spaces anatomically aligned. Degenerative changes of the acromioclavicular and more severely of the glenohumeral joint. No sclerotic or destructive changes. CT/Extremity Upper without Contra IMPRESSION: Degenerative changes of the left acromioclavicular and glenohumeral joints. Electronically Signed: Maury Crenshaw MD at 23:20 EDT , agree cystic changes in glenoid, no retroversion, lozano a1 Coding Level of Care Code Off vis,est,level 4 Diagnoses Primary osteoarthritis, left shoulder M19.012 Assessment and Plan Assessment and Plan (1) Primary osteoarthritis, left shoulder: Status: Acute Plan: 72 F L shoulder OA with weakness and cuff tear. Would like to delay the surgery to March. patient has a possible nickel sensitivity, may increase chance of loosening or sensitivity or other complications. she understands. has some questions about longevity and other questions. Would like to proceed with left shoulder reverse total shoulder arthroplasty. Needs cardiology and pu lmonary clearance beforehand due to COPD. We will arrange for this as well as to meet with the wrap for 3D surgical planning based on the CT scan has some cystic changes but no obvious retroversion. Patient is at moderate risk for complications given her elevated BMI and past medical history. Pros and cons risks and benefits were discussed with the patient including but not limited to infection, pain, stiffness, bleeding, damage to surrounding structures, neurovascular injury, recurrence or retear, failure or wear of hardware or fixation, instability, fracture, deep vein thrombosis and pulmonary embolism, anesthetic risks, , patient dissatisfaction, need for further surgery and other risks. Patient understood and wished to proceed with surgery, and signed the informed consent documentation. [facility] Medical History (Updated 02/24/23 @ 09:28 by Adri Ellison) Abnormal Pap smear of cervix Abnormal pulmonary function test Adhesive capsulitis of left shoulder Anemia Arthritis Atherosclerotic heart disease of [place] coronary artery without angina pectoris Atrial paroxysmal tachycardia Back pain Blackout CAD (coronary artery disease) Cardiology follow-up encounter Cardiomyopathy Cardiovascular disease COPD (chronic obstructive pulmonary disease) Dysuria Encounter for long-term current use of high risk medication Essential hypertension Fatty liver Former smoker Gastric reflux GERD (gastroesophageal reflux disease) History of echocardiogram History of left heart catheterization (LHC) (~12/17/21) History of stress test HLD (hyperlipidemia) Hypertension Left bundle-branch block Left shoulder pain Leg cramps Nonischemic cardiomyopathy Palpitations Post-menopausal Primary osteoarthritis, left shoulder Pure hypercholesterolemia Right ovarian cyst Shortness of breath on exertion Syncope Wears dentures Home Medications aspirin 81 mg chewable tablet 81 mg PO DAILY@0800 08/20/13 [History Last Taken 03/03/23] omeprazole 20 mg tablet,delayed release 20 mg PO DAILY 12/04/19 [History Last Taken 03/10/23] furosemide 40 mg tablet 40 mg PO DAILY #90 tabs 02/16/22 [Rx Last Taken Unknown] lisinopril 20 mg tablet 20 mg PO QDAY #90 tabs 03/19/22 [Rx Last Taken 03/10/23] cholecalciferol (vitamin D3) 125 mcg (5,000 unit) capsule 5,000 unit PO DAILY 05/04/22 [History Last Taken Unknown] valacyclovir 500 mg tablet 500 mg PO TID PRN cold sores 06/09/22 [History Last Taken Unknown] fluticasone fur. 200 mcg-umeclid 62.5 mcg-vilant 25 mcg inhalat.powder (Trelegy Ellipta) 1 inh inhalation DAILY #60 ea 01/14/23 [Rx Last Taken 03/10/23] carvedilol 25 mg tablet 25 mg PO BID Awaiting mail order RX, almost out of meds #180 tabs 02/01/23 [Rx Last Taken 03/10/23] potassium chloride 20 mEq tablet,extended release 20 meq PO DAILY #90 tabs 02/03/23 [Rx Last Taken Unknown] acetaminophen 500 mg tablet (Acetaminophen Extra Strength) 1,000 mg PO Q6H PRN pain 02/24/23 [History Last Taken Unknown] albuterol sulfate 90 mcg/actuation aerosol inhaler 2 inh inhalation Q6H PRN shortness of breath or wheezing #8.5 grams 03/03/23 [Rx Last Taken Unknown] Allergy/AdvReac Type Severity Reaction Status Date / Time azithromycin [From Zithromax] Allergy Other Verified 03/10/23 06:15 colesevelam [From WelChol] AdvReac Severe Constipatio Verified 03/10/23 06:15 n colestipol [From Colestid] AdvReac Severe Abdominal Verified 03/10/23 06:15 bloating,constipation Npwuitd-YSZ-GeB Reductase AdvReac Severe Myalgias Verified 03/10/23 06:15 Inhibitor [Twyiifq-Eov-Iza Reductase Inhibitor] telithromycin [From Ketek] AdvReac Severe Unknown Verified 03/10/23 06:15 Family History Father Diabetes Mother Arthritis Surgical History (Updated 02/24/23 @ 09:28 by Adri Ellison) cyst on throat H/O tubal ligation History of esophagogastroduodenoscopy (EGD) Hx of cholecystectomy Hx of colonoscopy Status post laparoscopic assisted vaginal hysterectomy (LAVH) Social History Smoking Status: Former smoker pack-years: 10 Tobacco: How many years used: 15 Electronic Cigarette Use: not used how long ago did patient quit smoking: Quit in 1999 second hand exposure: Yes alcohol intake: never substance use type: does not use caffeine: Yes frequency: 1-2 times per week seatbelt use: always do you feel safe at home: Yes additional social history: and retired Vital Signs Vital Signs Vital Signs: 03/10/23 06:16 03/10/23 06:16 Temperature 97.4 F L Temperature Source Temporal Pulse Rate 57 L Respiratory Rate 18 Respiratory Pattern Normal Blood Pressure 125/68 H Blood Pressure Mean 87 Blood Pressure Source Monitor Blood Pressure Position Semi-Fowlers Blood Pressure Location Right Arm Pulse Ox 95 Oxygen Delivery Method Room Air Weight Weight: 266 lb 12.149 oz Body Mass Index (BMI) 44.4 Results Lab / Micro Data 03/03/23 09:07 03/03/23 09:07 Labs: Laboratory Results - last 24 hr 03/10/23 05:56: POC Glucose 94
--- NOTE | 2023-03-10 07:30 | SHO_PTH ---
PATIENT: GRUPO DARDEN LOC: MS3 U#:[id number] AGE/SX: 73/F ROOM: NE318 RE03/10/[address]: Dr. Roldan Alvares MD : 1950 BED: 1 DIS: 03/11/2023 SPEC #: [id number] RECD: 03/10/23 10:40 STATUS: MAYTE REDmitry #: [id number] MARINA: 03/10/23 07:[address]: Roldan Alvares DEPT: SURGICAL PATHOLOGY RECD BY: Radha Pickett ENTERED: 03/10/23 12:36 SP TYPE: HUMERUS OTHR DR: Dr. Vadim Weller MD Tissues: Humerus, NOS Procedures: Decalcification bone/plaque Surgery Specimen Level IV HEADER OPERATION: Left shoulder reverse total shoulder arthroplasty PRE-OP DIAGNOSIS: Primary osteoarthritis left shoulder TISSUE SUBMITTED: Left humeral head and tissue MICROSCOPIC DIAGNOSIS Left humeral head, total shoulder resection: Severe degenerative joint disease. AM:kb 03/15/2023 MICROSCOPIC DESCRIPTION Slides are reviewed. GROSS DESCRIPTION Received is one container labeled with the patient's name and designated humeral head and tissue. The specimen consists of a discoid fragment of humeral head that is light pink-byrnes in color measuring 5.0 x 4.0 x 1.3 cm. The articular surfaces display prominent osteophyte formation, eburnation and bone erosion. Also present in the specimen container are multiple irregular fragments of bone and pink-byrnes soft tissue measuring in aggregate 7.0 x 5.0 x 1.0 cm. Lease Analyst sections are submitted in two cassettes as follows: 1 - soft tissue, 2 - bone after decalcification. / AM:kb 03/10/2023 TC:5 CPT: 41474, 17299
[2023-03-10] MEDS: Cefazolin 3 GM in 0.9% Normal Saline (100mL Bag) 100 ML IV (07:45)
[2023-03-10] MEDS: TXA 1000mg in NS100 100ml (IVPB at Incision) 660 MG IV (07:55)
[2023-03-10] MEDS: dexAMETHasone 10 MG/ML Vial IV (07:55)
--- NOTE | 2023-03-10 09:45 | RAD_ITS ---
STUDY: X-RAY - LEFT SHOULDER REASON FOR EXAM: Female, 73 years old. TOTAL SHOULDER TECHNIQUE: 1 view(s) of the shoulder. COMPARISON: Comparison is made with prior study dated June 09, 2022. FINDINGS: Intraoperative imaging for left reverse shoulder replacement. RAD/Shoulder One View IMPRESSION: Intraoperative imaging for left reverse shoulder replacement. Electronically Signed: Atul Ram MD at 15:03 EDT ,
[2023-03-10] MEDS: TXA 1000mg in NS100 100ml (IVPB at Closure) 660 MG IV (10:00)
--- NOTE | 2023-03-10 10:16 | PCM.OPRPT ---
Problems Associated Problem List Diagnoses (1) Primary osteoarthritis, left shoulder: Report of Operation Date of Procedure: 03/10/23 Pre-Operative Diagnosis: L shoulder OA Post-Operative Diagnosis: same Surgery/Procedure Performed:: Left reverse total shoulder arthroplasty Surgeon: Roldan Alvares Type of Anesthesia: Block,Regional and General Anesthesiologist: John Briggs Estimated Blood Loss (mL): 150 Description of Procedure: Patient brought to the operating room theater. Placed supine on the beachchair positioner. All bony prominences padded. SCDs on the legs. General anesthesia induced. Preoperative block given to the left upper extremity prior to the start of the procedure. 1.75 g IV vancomycin given due to MRSA colonization for preoperative prophylaxis, and standard decolonization protocol followed pre-op. Patient sat up at a 45 degree angle. Upper extremity prepped and draped in the usual sterile fashion with chlorhexidine-based prep solution allowing over 3 minutes drying time prior to draping. Preoperative timeout performed to confirm the site patient and the surgery. Began by making a standard longitudinal incision at the deltopectoral interval, just lateral to coracoid. Carried the dissection down through skin and subcutaneous tissue achieved meticulous hemostasis. Identified the cephalic vein and protected that retracted laterally developed the interval at the deltopectoral area. Identified the conjoined tendon dissected laterally on that protected this dissected underneath that placed a Islas shoulder retractor, retracting it medially. Identified the long head of the biceps. Released slightly the upper border of the pectoralis major tendon. Used #2 FiberWire to tenodese the long head of the biceps to the upper border of the pectoralis. Controlled circumflex humeral vessels with 2-0 vicryl suture. Developed the rotator interval. Excised the long head of the biceps remaining tissue. Rotator cuff superior aspect looked intact. I did a lesser tuberosity osteotomy. I identified and protected the axillary nerve. I then used the intramedullary guide To cut at 20 degrees retroversion for the Tornier perform reverse glenoid system. I developed the area at the inferior humeral medial metaphyseal area. I sharply incised this tissue along the neck all the posteriorly. Externally rotated the arm. I removed any osteophytes that were impinging. Identified the glenoid side. I developed the interval between the subscapularis and the capsule. I excised the labrum. I used a Ma instrument to remove the remaining cartilage there was very minimal there was already sclerotic with full-thickness cartilage loss. I placed the pin center center slightly inferior as on the plan. I selected a standard size baseplate. I reamed to bleeding bone by about a millimeter. I then did the center drill for a post and thorough irrigation pulse lavage for this. I then assembled the baseplate and post on the back table. This was impacted into place. I then used a locking screws and used all 4 holes, bicortical. This achieved good solid fixation. 36 mm glenosphere was then impacted and screwed into place achieving again good Billings taper fixation. Then I turned my attention to the humeral side. I used the sizers this looks like a #2 rather than a 3 as on the plan. Placed the guidepin for that and did the reaming for a size 2 humeral tray. I used the reverse cutting reamer and then placed a size 2 trial into the humerus. I trialed all the way up to a +6 mm polyethylene component which achieved good solid fixation no impingement full range of motion no obvious instability and good tension on the conjoined tendon. Removed the trials and selected the final components. Pulse lavage again for the humeral side and the final components the site selected a 2+ humerus with a +6 mm polyethylene. I used for drill holes 2 medial and 2 lateral to the repair site for the lesser tuberosity osteotomy. I passed #2 FiberWire sutures through the drill holes and then around the component for a solid repair. Polyethylene impacted into place and solidly fixated. The shoulder was reduced radiographs were taken to confirm appropriate position and component selection. Again shoulder was taken through full range of motion no instability or impingement. After the lesser tuberosity was repaired through the bone tunnels then I used again #2 FiberWire to close the rotator interval and the remaining subscapularis tissue for a solid repair. Thorough irrigation was then followed by closure of the subcutaneous tissue with 2-0 Vicryl suture and skin with 3-0 Monocryl. Skin cleaned with wet and dry dressing followed application of Steri-Strips and silver Mepilex dressing with sling for the upper extremity. Patient woken up from the general anesthetic transferred off the operating table and taken to postanesthetic care unit in stable condition. All sponge needle instrument counts were correct. cpt 26267 Complications none Admit VTE Documentation VTE Present on Admission: No VTE Mechan Device Prophylaxis: SCD's VTE Pharm Prophylaxis ordered?: No Reason prophylaxis not ordered:: Treatment Not Indicated Procedures Musculoskeletal [id number]: Other Procedure See Report
--- NOTE | 2023-03-10 10:30 | DCINST_ITS ---
Discharge Instructions Diet Discharge Diet: No restrictions Activity Discharge Activity: May Shower Ice area for (Minutes): 10 Additional Activity Instructions:: sling, pendulums four times a day, ok for hand elbow wrist ROM Dressing / Incision Call your doctor if your incision/area has: Continuous Slow Oozing, Sudden Increased Bleeding, Increased Pain/ Swelling, Increased Redness, Foul Smelling Discharge and Swelling at the incision site Change Dressing in: do not change dressing Cleanse incision/area with: Do not get Incision Wet Follow Up Care Please Follow Up With: oRldan Alvares MD When: 2 days Test Results: Test results from this visit will be discussed in further detail at your follow- up appointment, if applicable. Discharge Plan Admission Attending Provider: Roldan Alvares Primary Care Provider: Vadim Weller Discharge Orders/Prescriptions Prescriptions: New oxycodone-acetaminophen [Endocet] 5-325 mg tablet 1 tab PO Q6H MDD 6 PRN (Reason: pain) 5 Days Qty: 30 0RF No Action omeprazole 20 mg tablet,delayed release (DR/EC) 20 mg PO DAILY valacyclovir 500 mg tablet 500 mg PO TID PRN (Reason: cold sores) albuterol sulfate 90 mcg/actuation HFA aerosol inhaler 2 inh inhalation Q6H PRN (Reason: shortness of breath or wheezing) Qty: 8.5 6RF aspirin 81 MG tablet,chewable 81 mg PO DAILY@0800 Patient Comments: blood thinner cholecalciferol (vitamin D3) 125 mcg (5,000 unit) capsule 5,000 unit PO DAILY Patient Comments: supplement acetaminophen [Acetaminophen Extra Strength] 500 mg tablet 1,000 mg PO Q6H PRN (Reason: pain) furosemide 40 mg tablet 40 mg PO DAILY Qty: 90 3RF lisinopril 20 mg tablet 20 mg PO QDAY Qty: 90 3RF Trelegy Ellipta 200-62.5-25 mcg blister with device 1 inh inhalation DAILY Qty: 60 6RF carvedilol 25 mg tablet 25 mg PO BID Qty: 180 3RF Rx Instructions: must administer with a meal/food potassium chloride 20 mEq tablet extended release 20 meq PO DAILY Qty: 90 3RF Referrals / Follow Up: Vadim Weller MD [Primary Care Provider] - Roldan Alvares MD [Med Staff - Active Staff] - Disposition Disposition (needs filled in before D/C Order can be placed): Home, Self Care
--- NOTE | 2023-03-10 12:30 | SUR.PHASEII ---
Addendum entered by Marquis Fuentes 03/10/23 12:52: KATY ORDERED AND WILL BE GIVEN. BACK TO BED AND REPOSTIONED. PATIENT DENIES PAIN AND IS GOING TO TRY TO SLEEP SOME. Original Note: PATIENT WAS UP TO RESTROOM AND VOIDED. BACK IN ROOM AND BECAME NAUSEOUS.
[2023-03-10] MEDS: Ondansetron 4 MG/2 ML Vial IV (12:31)
--- NOTE | 2023-03-10 14:59 | PCM.PN.ORT ---
Objective Data Objective Data Vital Signs: Vital Signs Temp Pulse Resp BP Pulse Ox O2 Del Method O2 Flow Rate 97.2 F L 57 L 20 H 117/48 L 97 Room Air 4 03/10/23 14:40 03/10/23 14:40 03/10/23 14:40 03/10/23 14:40 03/10/23 14:40 03/10/23 14:40 03/10/23 11:30 Oxygen Flow Rate (L/min) 4 Oxygen Delivery Method Room Air Weight: 266 lb 12.149 oz Body Mass Index (BMI) 44.4 Intake & Output: Intake and Output for Last 24 Hours 03/08/23 03/09/23 03/10/23 23:59 23:59 23:59 Intake Total 972 / 972 Balance 972 / 972 Lab / Micro Data 03/03/23 09:07 03/03/23 09:07 Labs: Laboratory Results - last 24 hr 03/10/23 05:56: POC Glucose 94 Micro: Microbiology 03/03/23 09:07 Swab (Method) Nasal Screen MRSA/MSSA - Final Assessment & Plan Assessment/Plan (1) Primary osteoarthritis, left shoulder: PLAN: Patient post op RTSA. I did let them know they could go home today after surgery, but patient not comfortable nor is the daughter. No acute concerns, but does not feel ready to go home. Asked Dr. French (hospitalist) to admit and manage medical issues over night.
--- NOTE | 2023-03-10 15:05 | PN.HOSP_ITS ---
Reason for Visit Reason for Visit: Diagnoses Primary osteoarthritis, left shoulder (03/10/23) Encounter for other preprocedural examination (03/10/23) Subjective Subjective Patient seen at bedside on the floor postoperatively, daughters present. Patient laying comfortably in bed, conversing normally, in no acute distress. States she has mild shoulder pain at this point. Has an ice pack on the shoulder now, and her left arm is in a sling at this time. She denies any numbness or tingling down the arm. She does report some throat discomfort that feels similar to her acid reflux. She does feel hungry and would like to eat, but she would like medication to help with this acid reflux. She otherwise denies any fevers or chills. Denies any chest pain or shortness of breath. Denies any abdominal pain. Denies any nausea. No other acute concerns. Objective Data Objective Data Vital Signs: Vital Signs Temp Pulse Resp BP Pulse Ox O2 Del Method O2 Flow Rate 97.2 F L 57 L 20 H 117/48 L 97 Room Air 4 03/10/23 14:40 03/10/23 14:40 03/10/23 14:40 03/10/23 14:40 03/10/23 14:40 03/10/23 14:40 03/10/23 11:30 Oxygen Flow Rate (L/min) 4 Oxygen Delivery Method Room Air Weight: 121 kg Body Mass Index (BMI) 44.4 Intake & Output: Intake and Output for Last 24 Hours 03/08/23 03/09/23 03/10/23 23:59 23:59 23:59 Intake Total 972 / 972 Balance 972 / 972 Lab / Micro Data 03/03/23 09:07 03/03/23 09:07 Labs: Laboratory Results - last 24 hr 03/10/23 05:56: POC Glucose 94 Micro: Microbiology 03/03/23 09:07 Swab (Method) Nasal Screen MRSA/MSSA - Final Radiography Diagnostic Testing: Radiology Impression Shoulder X-Ray 03/10/23 09:45 IMPRESSION: Intraoperative imaging for left reverse shoulder replacement. Electronically Signed: Atul Ram MD at 15:03 EDT , Physical Exam Const alert, oriented x3 and no apparent distress Constitutional Narrative: Pleasant elderly female, morbidly obese, laying comfortably in bed, conversing normally, no acute distress. General Appearance: cooperative and comfortable HEENT normocephalic, head/scalp atraumatic, hearing grossly normal bilaterally, nasal mucous membranes and turbinates normal and moist oral mucous membranes Eyes PERRL, EOMs intact bilaterally and conjunctivae normal Neck full ROM, no lymphadenopathy and supple Lymph Lymphatic: no lymphadenopathy noted Chest inspection of chest normal Resp normal respiratory effort, normal air movement, no use of accessory muscles and clear to auscultation bilaterally Cardio regular rate, regular rhythm, no murmurs and peripheral pulses 2+ throughout GI normal to inspection, nondistended, normoactive bowel sounds, soft to palpation, non-tender and non-distended Back/Spine normal ROM Extremity Extremity Narrative: Left arm stable in sling, no gross abnormalities noted. Skin no rashes or lesions noted Psych mental status grossly normal Assessment & Plan Assessment/Plan (1) Primary osteoarthritis, left shoulder: PLAN: Plan Patient is a 73-year-old female with history of COPD, CAD, nonischemic cardiomyopathy, hypertension, hyperlipidemia, GERD, morbid obesity and left shoulder OA who presented to [facility] on 03/10/2023 for planned left shoulder surgery. Medicine consulted postoperatively for medical management. 1. Left shoulder OA S/p left reverse total shoulder arthroplasty with Dr. Alvares on 03/10. Patient tolerated procedure well but on discussion with patient and daughter, felt more comfortable keeping her in the hospital overnight to monitor her. ? Orthopedics primary. Pain control with scheduled Tylenol and oxycodone as needed. PT/OT/case management consulted. CBC and BMP in a.m. Incentive spirometry. Chronic medical conditions: ? COPD: Stable, satting well on room air. Continue home long-acting inhaler, albuterol as needed. ? CAD, nonischemic cardiomyopathy, HTN: Continue home aspirin, Lasix, potassium supplement, Coreg, lisinopril. ? GERD: Continue home PPI. ? Morbid obesity: BMI 44. Encouraged lifestyle modifications. DVT prophylaxis: Lovenox CODE STATUS: Full code, unverified Expected disposition: Home, 1 to 2 days Total clinical time spent by myself addressing the patient's medical issues, reviewing all the data, and collaborating with patient's care team: 35 minutes. Charges/Coding Visit Charges Inpatient E&M: 02255 Subs Hosp L2
[2023-03-10] MEDS: Lactated Ringers 1,000 ML 125 ML IV (16:57)
--- NOTE | 2023-03-10 18:05 | NURSING ---
Pt using I.S and peep at this time.
[2023-03-10] MEDS: Pantoprazole Sodium 20 MG Tablet PO (18:51)
[2023-03-10] MEDS: Ipratropium/Albuterol Sulfate 3 ML AMPUL.NEB INHALATION (20:36)
[2023-03-10] MEDS: Budesonide Respules 0.5 MG/2 ML AMPUL.NEB. INHALATION (20:36)
[2023-03-10] MEDS: Carvedilol 25 MG Tablet PO (22:53)
[2023-03-11 00:43] VITALS: BP 110/62; PULSE 68; RESP 16; TEMP 36.6; O2SAT 97
[2023-03-11 05:00] VITALS: BP 114/57; PULSE 60; RESP 16; TEMP 37.1; O2SAT 95
[2023-03-11] MEDS: oxyCODONE 5 MG Tablet PO ×2 (05:35→10:56)
[2023-03-11] MEDS: Acetaminophen 500 MG Tablet 1000 MG PO ×2 (05:36→14:21)
[2023-03-11 06:26] LABS: Absolute Lymphocyte Count 1.89 X10^3/uL (0.83-4.51); Basophil# 0.03 X10^3/uL; Basophil% 0.2 % (0-1); Eosinophil# 0.01 X10^3/uL; Eosinophils% 0.1 % (0-5); Hemoglobin 11.6 g/dL (12.0-15.0); Lymphocyte # 1.89 X10^3/ul (0.83-4.51); Lymphocyte % 12.6 % (19-41); Mean Corp Hgb Conc 31.4 g/dL (32-36); Mean Corpuscular Hgb 30.7 pg (27.0-32.0); Mean Corpuscular Volume 97.9 fL (81-99); Mean Platelet Vol. 9.9 fl (6.2-12.0); Monocyte# 0.93 X10^3/uL; Monocyte% 6.2 % (0-10); NRBC Flagged by Analyzer 0 % (0-5); Neutrophil % 80.1 % (47-70); Platelet Count 189 K/mm3 (150-450); RBC Distribution Width SD 46.5 fl (35.1-43.9); Red Blood Count 3.78 M/mm3 (4.2-5.4)
[2023-03-11 06:51] LABS: Anion Gap 4 (5-15); BUN 14 mg/dL (7-18); BUN/Creat Ratio 15.8 RATIO (10-20); Calcium,Total 8.5 mg/dL (8.5-10.1); Chloride 104 mmol/L (98-107); Creatinine, Serum 0.89 mg/dL (0.55-1.02); EST Glomerular Filtration Rate 66 mL/min (>60); Est Glom Filt Rate - Afr Amer 80 mL/min (>60); Estimated Creatinine Clearance 50.66 ml/min; Glucose 118 mg/dL (74-106); Potassium 4.2 mmol/L (3.5-5.1); Sodium Level 136 mmol/L (136-145)
[2023-03-11] MEDS: Ipratropium/Albuterol Sulfate 3 ML AMPUL.NEB INHALATION ×2 (07:03→12:25)
[2023-03-11] MEDS: Budesonide Respules 0.5 MG/2 ML AMPUL.NEB. INHALATION (07:03)
[2023-03-11 07:06] VITALS: PULSE 55; RESP 16
[2023-03-11] MEDS: Mag Hydrox/Al Hydrox/Simeth 30 ML UDC 60 ML PO (10:00)
[2023-03-11 10:39] VITALS: BP 126/64; PULSE 68; RESP 16; TEMP 36.8; O2SAT 99
[2023-03-11] MEDS: Furosemide 40 MG Tablet PO (10:43)
[2023-03-11] MEDS: Lisinopril 20 MG Tablet PO (10:43)
[2023-03-11] MEDS: Aspirin 81 MG TAB.CHEW PO (10:43)
[2023-03-11] MEDS: Carvedilol 25 MG Tablet PO (10:44)
[2023-03-11] MEDS: Potassium Chloride Oral Tablet 20 MEQ PO (10:44)
[2023-03-11] MEDS: Enoxaparin 40 MG/0.4 ML Syringe SC (10:44)
[2023-03-11] MEDS: Pantoprazole Sodium 20 MG Tablet PO (10:44)
[2023-03-11 12:25] VITALS: PULSE 62; RESP 16
--- NOTE | 2023-03-11 14:00 | CASEMGMT ---
SITA MEDRANO Assessment: Face to Face with pt for initial transition planning/care coordination assessment. RN MITCHELL introduced self and role at [facility], pt voices understanding and consents to assessment. Pt is A&O x4 and answers all questions appropriately at this time. Pt sitting up in chair in no distress with dtr at bedside. Pt seen ambulating halls earlier without device. Care providers, pharmacy, and demographics verified/updated. Admitting Dx: L shoulder reverse total shoulder arthroplasty PCP:Nithin Specialists:nohemi Alvares; FELICIA, cardio; Lashay Lee Preferred Pharmacy: [facility] Insurance: [address] [facility] Prescription Benefit: yes LNOK: Shayy So, dtr Living Arrangements: Pt lives alone in a mobile home with 5 steps to enter with a rail. Pt reports she was I in ADL's prior to surgery. Pt dtr will stay with her for a short time to assist post surgery. Transportation: Pt drives self and denies concerns with transportation. Pt dtr to transport pt until pt can drive again. DME:income tax manager, shower chair, cane, walker, rollator, pox, BP cuff HHC/SNF: Pt denies hx Pt states no concerns with going home at time of dc. Pt states no further concerns/needs. CM to follow. Advised pt to ask CM if any further question/concerns/needs arise, voices understanding. Pt Goal: Home Plan: Home
== END 2023-03-11 14:35 | disposition home or self-care (01) ==
LOC: SDC 15:46 → MS3 15:46
PROVIDERS: Anesthesiology; Hospitalist; Admitting Provider Orthopaedic Surgery Sports Medicine; PCP Family Medicine; Referring Provider Orthopaedic Surgery Sports Medicine; Visit Provider Orthopaedic Surgery Sports Medicine
PROC: (CPT 23472; principal; 2023-03-10 07:00)
DX: M19.012 Primary osteoarthritis, left shoulder (principal); J44.9 Chronic obstructive pulmonary disease, unspecified; I42.8 Other cardiomyopathies; E66.01 Morbid (severe) obesity due to excess calories; Z68.41 Body mass index [BMI] 40.0-44.9, adult; Z79.82 Long term (current) use of aspirin; E78.00 Pure hypercholesterolemia, unspecified; I25.10 Atherosclerotic heart disease of native coronary artery without angina pectoris; Z87.891 Personal history of nicotine dependence; I10 Essential (primary) hypertension; Z79.51 Long term (current) use of inhaled steroids; Z79.899 Other long term (current) drug therapy; K21.9 Gastro-esophageal reflux disease without esophagitis; R06.02 Shortness of breath
CPT/HCPCS: 23472; 01638; 64415; 36415; 73020; 76000; 80048; 82962; 82985; 83036; 83735; 85025; 85610; 85730; 86850; 86900; 86901; 87077; 87081; 88305; 88311; 93005; 94640; 94668; 96372; 97166; 99221; C1776; J7040; J7120; G0378; J2405; J3475

== ENCOUNTER 2023-04-08 11:00 | Outpatient (RCR) | payer MEDICARE, SELFPAY ==
--- NOTE | 2023-03-25 12:32 | HP.PTEVAL_ITS ---
Patient's Visit Information Visit Information Visit Information: GRUPO DARDEN is a 73 year old F referred to Physical Therapy by Dr. Roldan Alvares MD with a diagnosis of Left Reverse Total Shoulder March 10, [address] Alvares. Date of Evaluation: 03/25/23 Physical Therapist: Viktoriya Velazquez DPT Visit Plan Frequency: 1x/Week Duration: 6 Weeks Plan: Reverse Total Shoulder March 10, [address] Alvares 1x a week for 6 weeks due to co-pay- focus on HEP HEP Given IE: pendulums, elbow flexion/extn, table walk aways, wall wash flexion. Subjective Subjective: Left Reverse Total Shoulder by Dr. Alvares March 10-she stayed overnight and then went home the next day- and she lives by herself but her daughter lives close and can help if needed. Prior to surgery she was I with all ADL's- she was very painful prior to surgery. She is right hand dominate. Worst: 02/14 Agg: sleep, moving it around. Currently: 12/14 Best: 07/17. Eases : hot showers and rub with muscle rub. The pain is on the top of the shoulder and radiates to the wrist- the pain is also in the chest muscle. The pain is sharp and shooting when she is moves it and its dull and achy when she is just sitting. No N/T in the fingers. She was told to take the sling off but when she did she hurt all night long so she is scared to take it off. Sleep: half in recliner and half in the bed- very disturbed. The last time she saw the MD was Wednesday. She reports that everything looked okay- he took x-rays. She was told not to push it all backwards and not put it behind her back and not push up with it. She is allowed to drive in a month. She is very worried about her co-pay. She does all of her own housework but she does not work outside of her home- she feels that she is semi active but her daugher does not feel that she is. PMHx/Meds: no changes since ortho. Objective Objective: Posture: forward head, rounded shoulders- guarding of the left UE- with sling Gait: decreased arm swing- sling on left UE- guarded Observation: incision healing well no s/s of infection- bruising around incision Palpation: tender throughout UE to light touch from occiput throughout upper trap to tip of acromion along medial border of the scapula to the bicipital groove to the elbow down the forearm to the wrist ROM: Finger dexterity: WFL, able to make a fist. elbow: WFL, Cervical: WFL, Shoulder: ROM: AROM: Flexion: 30 degrees Abd: 40 degrees, PROM: Flexion: 90 degrees Abd: 50 degrees, IR: belly, ER: neutral Strength: Isometric: Shoulder: 3+/5 with discomfort at neutral, Elbow: 3+/5, Dowel Sticker Operator: Right: 30 Left: 20 Balance/Special Test Scores Quick DASH Score: 65.9075 Goals Goal 1:: Patient will report participation in home exercise program activities a minimum of 5 days per week, as adjunct to skilled physical therapy intervention in preparation for independent home management upon discharge. Goal Time Frame: 6-8 Weeks Goal 2:: Patient will demo full AROM of the left shoulder to ease ADL's Goal Time Frame: 6-8 Weeks Goal 3:: Patient will report sleeping through the night for 1 week to ease ADL's. Goal Time Frame: 6-8 Weeks Goal 4:: Patient will report an increase of 14 points on the Quick DASH to show minimal clinical significant difference on patients functional outcome measure. Goal Time Frame: 6-8 Weeks Rehabilitation Potential Physical Therapy Diagnosis: Patient presents s/p left Reverse TSA- she has decreased ROM, strength and muscular endurance leading to pain and decreased ability to perform ADL's Rehabilitation Potential: Good Anticipated Interventions Patient/Client Instruction: Educate patient on: Benefits of Fitness Program Therapeutic Exercise to Include: Strength training, Endurance training, Coordination, Agility training, Body mechanics, Postural training, Passive ROM, Active ROM, Dynamic Lumbar Stabilization and Scapular Strength/Stabilization For the Purpose of:: To improve muscle performance and motor function Manual Therapy Techniques to Include: Passive ROM and Soft tissue mobilization For the Purpose of:: To improve muscle performance and motor function Cryotherapy (ice pack, ice massage): Yes Thermo therapy (hot pack): Yes Text: Thank you for the opportunity to evaluate your patient. For Medicare and Medicare HMO plans, please review the plan of care and approve it. It will need to be FAXED BACK to us at [phone] for Medicare purposes. For Medicare only, by signing this I certify the plan of care. Please let me know if there are questions or concerns regarding this plan of care. Physician Signature: Date:
== END 2023-04-08 19:00 | disposition home or self-care (01) ==
LOC: PT 11:00
PROVIDERS: PCP Family Medicine; Referring Provider Orthopaedic Surgery Sports Medicine; Visit Provider Orthopaedic Surgery Sports Medicine
DX: M19.012 Primary osteoarthritis, left shoulder (principal)
CPT/HCPCS: 97110; 97162

== ENCOUNTER → 2023-12-03 | Outpatient (CLI) | payer MEDICARE, SELFPAY ==
--- NOTE | 2023-12-03 09:42 | ECHOCS_ITS ---
Reason For Study: CM Procedure This was a 2D Doppler, Color Flow transthoracic echocardiogram. Contrast injection was performed. Exam performed in department. Left Ventricle Normal LV size. The estimated ejection fraction is 40 %. There is evidence of diastolic dysfunction. There is mild to moderate global hypokinesis of the left ventricle. Right Ventricle Normal RV size. Normal systolic function. Atria The left and right atria are normal. No doppler evidence for ASD. Mitral Valve There is no mitral valve stenosis. Trivial mitral valve insufficiency. Tricuspid Valve There is no tricuspid stenosis. Unable to estimate RV systolic pressure due to inadequate jet, pulmonary artery pressure probably normal. Aortic Valve The aortic valve is not well visualized. There is no aortic stenosis. No aortic valve insufficiency. Pulmonic Valve There is no pulmonic valvular stenosis. No pulmonic valve insufficiency. Great Vessels Normal aortic root. Pericardium/Pleural No pericardial effusion. Medication Diluted definity 2ml given slow IV push to enhance endocardial definition. MMode/2D Measurements & Calculations LVIDd: 5.0 cm IVSd: 1.0 cm Ao root diam: 3.3 cm LVIDs: 4.0 cm LVPWd: 1.1 cm RVDd: 3.3 cm FS: 20.9 % LAV(MOD-bp): 70.3 ml LVAd ap4: 34.0 cm2 SV(MOD-sp4): 58.3 ml LAV(MOD-bp) Indexed: 31.3 ml/m2 LVLd ap4: 7.2 cm LAV(MOD-sp2): 70.6 ml EDV(MOD-sp4): 129.5 ml LAV(MOD-sp4): 70.8 ml EDV(sp4-el): 136.2 ml LVAs ap4: 23.2 cm2 LVLs ap4: 6.3 cm ESV(MOD-sp4): 71.3 ml ESV(sp4-el): 72.5 ml EF(MOD-sp4): 45.0 % EF(sp4-el): 46.8 % SV(sp4-el): 63.7 ml LA A4 area: 21.5 cm2 LA dimension(2D): 4.9 cm RA A4 area: 18.1 cm2 TAPSE: 2.5 cm Time Measurements MV dec time: 0.31 sec Doppler Measurements & Calculations MV E max alexi: 64.1 cm/sec Lat Peak E' Alexi: 3.0 cm/sec Med Peak E' Alexi: 3.4 cm/sec MV A max alexi: 96.4 cm/sec E/E' lat: 21.3 E/E' med: 18.9 MV E/A: 0.66 MV V2 max: 91.3 cm/sec MV dec slope: 207.6 cm/sec2 Ao V2 max: 189.1 cm/sec MV max P.3 mmHg Ao max P.3 mmHg MV V2 mean: 50.5 cm/sec Ao V2 mean: 133.2 cm/sec MV mean P.2 mmHg Ao mean P.9 mmHg MV V2 VTI: 31.3 cm Ao V2 VTI: 38.5 cm LV V1 max: 123.0 cm/sec PA V2 max: 110.4 cm/sec LV V1 max P.1 mmHg ECHO/Echo Complete W/ Contrast Interpretation Summary The estimated ejection fraction is 40 %. There is evidence of diastolic dysfunction. There is mild to moderate global hypokinesis of the left ventricle. Trivial mitral valve insufficiency. Ordering Physician: Odilon Gonzalez Referring Physician: Vadim Weller Performed By: Kaylyn Case, GRICELDA, RVT
== END | disposition home or self-care (01) ==
LOC: CVS 09:40
PROVIDERS: PCP Family Medicine; Referring Provider Internal Medicine Cardiovascular Disease; Visit Provider Internal Medicine Cardiovascular Disease
DX: I42.8 Other cardiomyopathies (principal)
CPT/HCPCS: 93306; Q9957; A4216; C8929

== ENCOUNTER → 2023-12-30 | Outpatient (CLI) | payer MEDICARE, SELFPAY ==
[2023-12-30 08:42] LABS: Anion Gap 4 (5-15); BUN 18 mg/dL (7-18); BUN/Creat Ratio 18.1 RATIO (10-20); Chloride 105 mmol/L (98-107); EST Glomerular Filtration Rate 58 mL/min (>60); Est Glom Filt Rate - Afr Amer 70 mL/min (>60); Glucose 98 mg/dL (74-106); Potassium 4.3 mmol/L (3.5-5.1); Sodium Level 137 mmol/L (136-145)
== END | disposition home or self-care (01) ==
LOC: LAB 07:10
PROVIDERS: PCP Family Medicine; Referring Provider Internal Medicine Cardiovascular Disease; Visit Provider Internal Medicine Cardiovascular Disease
DX: I42.8 Other cardiomyopathies (principal)
CPT/HCPCS: 36415; 80048; 83880

== ENCOUNTER → 2024-02-12 | Outpatient (CLI) | payer MEDICARE, SELFPAY ==
[2024-02-12 11:45] LABS: Anion Gap 5 (5-15); BUN 18 mg/dL (7-18); BUN/Creat Ratio 17.1 RATIO (10-20); Calcium,Total 9.4 mg/dL (8.5-10.1); Chloride 103 mmol/L (98-107); Creatinine, Serum 1.05 mg/dL (0.55-1.02); EST Glomerular Filtration Rate 54 mL/min (>60); Est Glom Filt Rate - Afr Amer 66 mL/min (>60); Glucose 112 mg/dL (74-106); Potassium 4.1 mmol/L (3.5-5.1); Sodium Level 136 mmol/L (136-145)
== END | disposition home or self-care (01) ==
LOC: LAB 10:53
PROVIDERS: PCP Family Medicine; Referring Provider Internal Medicine Cardiovascular Disease; Visit Provider Internal Medicine Cardiovascular Disease
DX: I10 Essential (primary) hypertension (principal); Z51.81 Encounter for therapeutic drug level monitoring; Z79.899 Other long term (current) drug therapy
CPT/HCPCS: 36415; 80048

== ENCOUNTER → 2024-08-29 | Outpatient (CLI) | payer MEDICARE, SELFPAY ==
[2024-08-29 08:30] LABS: Absolute Neutrophil Count 5.7 X10^3/uL (2.0-7.7); Basophil# 0.06 X10^3/uL; Basophil% 0.7 % (0-1); Eosinophil# 0.12 X10^3/uL; Eosinophils% 1.4 % (0-5); Hematocrit 42.4 % (37-47); Hemoglobin 13.8 g/dL (12.0-15.0); Lymphocyte % 24.7 % (19-41); Mean Corp Hgb Conc 32.5 g/dL (32-36); Mean Corpuscular Hgb 30.9 pg (27.0-32.0); Mean Corpuscular Volume 94.9 fL (81-99); Mean Platelet Vol. 9.8 fl (6.2-12.0); Monocyte# 0.47 X10^3/uL; Monocyte% 5.5 % (0-10); NRBC Flagged by Analyzer 0 % (0-5); Neutrophil % 67.2 % (47-70); Platelet Count 208 K/mm3 (150-450); RBC Distribution Width CV 13.3 % (11.6-14.6); RBC Distribution Width SD 46.8 fl (35.1-43.9); Red Blood Count 4.47 M/mm3 (4.2-5.4); White Blood Count 8.5 K/mm3 (4.4-11.0)
[2024-08-29 11:43] LABS: Cholesterol 218 mg/dL (<=200); High Density Lipoprotein 51 mg/dL; Low Density Lipoprotein Calc. 133 mg/dL; Triglycerides 170 mg/dL; Very Low Density Lipoprotein 34 mg/dL (5-40)
[2024-08-29 12:14] LABS: ALB/GLOB Ratio 1.4 RATIO (0.9-2.4); AST(SGOT) 28 U/L (<=31); Alanine Aminotransfer ALT/SGPT 29 U/L (<=34); Albumin, Serum 4.1 g/dL (3.4-4.8); Alkaline Phosphatase 86 U/L (35-104); Anion Gap 12 (5-15); BUN 6 mg/dL (4-19); BUN/Creat Ratio 5.2 RATIO (10-20); Calcium,Total 7.2 mg/dL (7.6-11.0); Carbon Dioxide 23.1 mmol/L (21.0-32.0); Chloride 101 mmol/L (98-108); Creatinine, Serum 1.13 mg/dL (0.70-1.20); EST Glomerular Filtration Rate 51 (>60); Glucose 91 mg/dL (70-99); Potassium 4.9 mmol/L (3.3-5.1); Protein, Total 7.1 g/dL (5.9-8.4); Sodium Level 136 mmol/L (133-145); Total Bilirubin 0.43 mg/dL (0.00-1.30)
== END | disposition home or self-care (01) ==
LOC: LAB 07:54
PROVIDERS: PCP Family Medicine; Referring Provider Internal Medicine Cardiovascular Disease; Visit Provider Internal Medicine Cardiovascular Disease
DX: I42.8 Other cardiomyopathies (principal); I25.10 Atherosclerotic heart disease of native coronary artery without angina pectoris
CPT/HCPCS: 36415; 80053; 80061; 85025

== ENCOUNTER → 2024-09-28 | Outpatient (CLI) | payer MEDICARE, SELFPAY ==
--- NOTE | 2024-09-28 10:35 | RAD_ITS ---
PROCEDURE: CHEST PA AND LATERAL 09/28/2024 REASON FOR EXAM: SOB TECHNIQUE: Frontal and lateral views of the chest. COMPARISON: None FINDINGS: Mild cardiomegaly. No focal consolidation, pleural effusion or sizable pneumothorax. RAD/Chest PA and Lateral IMPRESSION: Mild cardiomegaly without focal airspace abnormality. Reading Location: [facility]
[2024-09-28 12:20] LABS: Hematocrit 41.9 % (37-47); Hemoglobin 13.6 g/dL (12.0-15.0); Mean Corp Hgb Conc 32.5 g/dL (32-36); Mean Corpuscular Hgb 31.6 pg (27.0-32.0); Mean Corpuscular Volume 97.2 fL (81-99); Mean Platelet Vol. 10.4 fl (6.2-12.0); Platelet Count 203 K/mm3 (150-450); RBC Distribution Width CV 13.7 % (11.6-14.6); RBC Distribution Width SD 49.8 fl (35.1-43.9); Red Blood Count 4.31 M/mm3 (4.2-5.4)
[2024-09-28 13:03] LABS: Anion Gap 13 (5-15); BUN 20 mg/dL (4-19); BUN/Creat Ratio 17.6 RATIO (10-20); Calcium,Total 8.8 mg/dL (7.6-11.0); Carbon Dioxide 24.9 mmol/L (21.0-32.0); Chloride 100 mmol/L (98-108); Creatinine, Serum 1.11 mg/dL (0.70-1.20); EST Glomerular Filtration Rate 52 (>60); Glucose 91 mg/dL (70-99); Potassium 4.3 mmol/L (3.3-5.1); Pro- Brain NATRIURETIC PEPTIDE 222 pg/mL (<=900); Sodium Level 138 mmol/L (133-145)
== END | disposition home or self-care (01) ==
LOC: RAD 10:28
PROVIDERS: PCP Family Medicine; Referring Provider Internal Medicine Cardiovascular Disease; Visit Provider Internal Medicine Cardiovascular Disease
DX: R06.02 Shortness of breath (principal); J44.9 Chronic obstructive pulmonary disease, unspecified; R53.83 Other fatigue; I25.10 Atherosclerotic heart disease of native coronary artery without angina pectoris; R14.0 Abdominal distension (gaseous); R05.9 Cough, unspecified; Z51.81 Encounter for therapeutic drug level monitoring; Z79.899 Other long term (current) drug therapy
CPT/HCPCS: 36415; 71046; 80048; 83880; 84443; 85027

== ENCOUNTER → 2024-09-29 | Outpatient (CLI) | payer MEDICARE, SELFPAY ==
--- NOTE | 2024-09-29 14:29 | ECHOCS_ITS ---
Reason For Study Reason For Study: SOB Procedure This was a 2D Doppler, Color Flow transthoracic echocardiogram. The study was technically difficult. Patient scanned supine. Contrast injection was performed. Exam performed in department. Left Ventricle Normal LV size. Mild concentric left ventricular hypertrophy. Mild LV systolic dysfunction. Estimated LVEF 45 to 50%. Grade 1 diastolic dysfunction. Right Ventricle Normal right ventricle. Atria The left and right atria are normal. Mitral Valve Trivial mitral valve insufficiency. Tricuspid Valve No tricuspid valve insufficiency. Aortic Valve Trisinus/trileaflet aortic valve. There is no aortic stenosis. No aortic valve insufficiency. Pulmonic Valve The pulmonic valve is not well visualized. Great Vessels Normal sized aortic root. Pericardium/Pleural No pericardial effusion. Medication 22 gauge I.V. with prn adaptor inserted into right arm. Diluted definity 1.5ml given slow IV push to enhance endocardial definition. MMode/2D Measurements & Calculations LVIDd: 4.8 cm IVSd: 1.2 cm LVOT diam: 2.0 cm LVIDs: 3.4 cm LVPWd: 1.3 cm FS: 29.5 % LVOT area: 3.2 cm2 Ao root diam: 3.1 cm LAV(MOD-bp): 40.7 ml LVAd ap4: 39.3 cm2 LAV(MOD-bp) Indexed: 18.4 ml/m2 LVLd ap4: 8.2 cm LAV(MOD-sp2): 25.8 ml EDV(MOD-sp4): 152.6 ml LAV(MOD-sp4): 49.8 ml EDV(sp4-el): 159.5 ml LVAs ap4: 24.7 cm2 LVLs ap4: 7.6 cm ESV(MOD-sp4): 66.7 ml ESV(sp4-el): 68.3 ml EF(MOD-sp4): 56.3 % EF(sp4-el): 57.2 % SV(MOD-sp4): 85.9 ml SV(sp4-el): 91.3 ml LA A4 area: 18.6 cm2 SI(MOD-sp4): 38.8 ml/m2 LA dimension(2D): 4.0 cm RA A4 area: 11.1 cm2 Time Measurements MV dec time: 0.33 sec Doppler Measurements & Calculations MV E max alexi: 62.2 cm/sec Lat Peak E' Alexi: 4.7 cm/sec Med Peak E' Alexi: 5.6 cm/sec MV A max alexi: 74.2 cm/sec E/E' lat: 13.1 E/E' med: 11.1 MV E/A: 0.84 MV V2 max: 89.8 cm/sec MV dec slope: 191.0 cm/sec2 Ao V2 max: 150.7 cm/sec MV max P.2 mmHg Ao max P.1 mmHg MV V2 mean: 53.9 cm/sec Ao V2 mean: 97.8 cm/sec MV mean P.3 mmHg Ao mean P.6 mmHg MV V2 VTI: 36.2 cm Ao V2 VTI: 33.1 cm MVA(VTI): 2.6 cm2 AV (velocity ratio): 0.89 JOSIE(I,D): 2.8 cm2 JOSIE(V,D): 2.8 cm2 LV V1 max: 133.1 cm/sec SV(LVOT): 93.4 ml PA V2 max: 98.1 cm/sec LV V1 max P.1 mmHg PA V2 mean: 61.2 cm/sec LV V1 mean P.1 mmHg LV V1 mean: 96.2 cm/sec LV V1 VTI: 29.5 cm ECHO/Echo Complete W/ Contrast Interpretation Summary The study was technically difficult. Mild concentric left ventricular hypertrophy. Mild LV systolic dysfunction. Estimated LVEF 45 to 50%. Grade 1 diastolic dysfu nction. Ordering Physician: Odilon Gonzalez Referring Physician: Odilon Gonzalez Performed By: Queta Naranjo RCS
== END | disposition home or self-care (01) ==
LOC: CVS 14:28
PROVIDERS: PCP Family Medicine; Referring Provider Internal Medicine Cardiovascular Disease; Visit Provider Internal Medicine Cardiovascular Disease
DX: R06.02 Shortness of breath (principal)
CPT/HCPCS: 93306; Q9957; A4216; C8929

== ENCOUNTER → 2025-03-08 | Outpatient (CLI) | payer MEDICARE, SELFPAY ==
[2025-03-08 11:15] VITALS: PULSE 58; PULSE 63; PULSE 69; PULSE 70; PULSE 74; PULSE 75; PULSE 76; O2SAT 92; O2SAT 93; O2SAT 96; O2SAT 97
--- NOTE | 2025-03-09 11:22 | PCM.PSN.6M ---
PSN 6 Minute Walk Test 6 Minute Walk Test 6 Minute Walk Test: 6 Minute Walk Test PSN:6-Minute Walk Test Start: 03/08/25 11:23 Freq: Status: Active Protocol: [id number] Document 03/08/25 11:15 AEH (Rec: 03/08/25 11:28 AEH [id number]) 6 Minute Walk Test Date Performed 03/08/25 Time Performed 11:15 Height 5 ft 6 in Weight: 260 lb Weight in Pounds [address]: Lou Assistive device None used: Pre-test Oxygen Delivery Room Air Method Pulse Ox (%) 97 Pulse Rate (60-100 58 L beats/min) Dyspnea Saira Scale ( 0 0-10) Exertion Saira Scale 6 (6-20) 1st minute Oxygen Delivery Room Air Method Pulse Ox (%) 96 Pulse Rate (60-100 70 beats/min) 2nd minute Oxygen Delivery Room Air Method Pulse Ox (%) 92 Pulse Rate (60-100 69 beats/min) 3rd minute Oxygen Delivery Room Air Method Pulse Ox (%) 93 Pulse Rate (60-100 74 beats/min) 4th minute Oxygen Delivery Room Air Method Pulse Ox (%) 93 Pulse Rate (60-100 75 beats/min) 5th minute Oxygen Delivery Room Air Method Pulse Ox (%) 92 Pulse Rate (60-100 75 beats/min) 6th minute Oxygen Delivery Room Air Method Pulse Ox (%) 92 Pulse Rate (60-100 76 beats/min) Dyspnea Saira Scale ( 0 0-10) Exertion Saira Scale 12 (6-20) Post-test Oxygen Delivery Room Air Method Pulse Ox (%) 96 Pulse Rate (60-100 63 beats/min) Full Laps Walked 11 Partial Lap, Number 0 of Tiles Walked Total Distance 649 Walked (ft) Interpretation Interpretation: The patient ambulated 649 feet over the course of 6 minutes beginning on room air without assistive devices. Pretesting oxygen saturation was noted to be 97% on room air. With ambulation, the eric oxygen saturation was 92%. This represents a significant exertional oxygen desaturation, consistent with a pulmonary limitation to exercise tolerance. Recommendations Recommendations: There is no indication for the use of supplemental oxygen at this time.
== END | disposition home or self-care (01) ==
LOC: PSN 10:55
PROVIDERS: PCP Family Medicine; Referring Provider Nurse Practitioner Family; Visit Provider Nurse Practitioner Family
DX: J44.9 Chronic obstructive pulmonary disease, unspecified (principal)
CPT/HCPCS: 94618

== ENCOUNTER → 2025-03-12 | Outpatient (CLI) | payer MEDICARE, SELFPAY | END | disposition home or self-care (01) | LOC: PSN 10:25 | PROVIDERS: PCP Family Medicine; Referring Provider Nurse Practitioner Family; Visit Provider Nurse Practitioner Family | DX: J44.9 Chronic obstructive pulmonary disease, unspecified (principal) | CPT/HCPCS: 94060; 94726; 94729 ==

== ENCOUNTER → 2025-04-09 | Outpatient (CLI) | payer MEDICARE, SELFPAY ==
[2025-04-09 13:02] LABS: AST(SGOT) 36 U/L (<=31); Alanine Aminotransfer ALT/SGPT 45 U/L (<=34); Albumin, Serum 4.3 g/dL (3.4-4.8); Alkaline Phosphatase 126 U/L (35-104); Anion Gap 11 (5-15); BUN 30 mg/dL (4-19); BUN/Creat Ratio 25.4 RATIO (10-20); Calcium,Total 9.6 mg/dL (7.6-11.0); Carbon Dioxide 28.6 mmol/L (21.0-32.0); Chloride 98 mmol/L (98-108); Cholesterol 248 mg/dL (<=200); Globulin 3.1 g/dL (2.2-4.2); Glucose 85 mg/dL (70-99); Low Density Lipoprotein Calc. 167 mg/dL; Potassium 4.3 mmol/L (3.3-5.1); Triglycerides 179 mg/dL; Very Low Density Lipoprotein 36 mg/dL (5-40); cholesterol:hdl ratio screen 5.11
== END | disposition home or self-care (01) ==
LOC: LAB 10:48
PROVIDERS: PCP Family Medicine; Referring Provider Student in an Organized Health Care Education/Training Program; Visit Provider Student in an Organized Health Care Education/Training Program
DX: I10 Essential (primary) hypertension (principal); E78.00 Pure hypercholesterolemia, unspecified
CPT/HCPCS: 36415; 80053; 80061